=== PATIENT | female | born 1945 | race Caucasian/White ===

== ENCOUNTER 2017-10-11 19:13 | Emergency (ER) | payer OTHER, SELFPAY ==
[~2017-10-11] VITALS: Ht 170.2 cm; Wt 77.1 kg
[~2017-10-11 19:13] MED LIST: ATOR10 PO; Aspir 8181 MG PO; CARV25 PO; CLOP75 PO; GLIPIZIDE; LISI20 PO; METF500C PO; Tylenol With C1 EACH PO
[2017-10-11] MEDS ORDERED: Keflex500 MG PO (20:55)
[2017-10-11] MEDS ORDERED: Bactrim Ds Tab1 EACH PO (20:55)
== END 2017-10-11 21:04 | disposition home or self-care (01) ==
LOC: ER 19:13
DX: L03.116 Cellulitis of left lower limb (principal); E11.9 Type 2 diabetes mellitus without complications; I25.10 Atherosclerotic heart disease of native coronary artery without angina pectoris; I10 Essential (primary) hypertension; E78.00 Pure hypercholesterolemia, unspecified; Z88.8 Allergy status to other drugs, medicaments and biological substances; Z88.0 Allergy status to penicillin; Z79.82 Long term (current) use of aspirin; Z79.899 Other long term (current) drug therapy; Z79.84 Long term (current) use of oral hypoglycemic drugs; Z95.1 Presence of aortocoronary bypass graft; Z95.0 Presence of cardiac pacemaker
CPT/HCPCS: 73610; 99283

== ENCOUNTER 2017-11-16 03:47 | Emergency (ER) | payer OTHER, SELFPAY ==
[~2017-11-16] VITALS: Ht 170.2 cm; Wt 77.1 kg
[~2017-11-16 03:47] MED LIST changes: +Bactrim Ds Tab1 EACH PO; +Keflex500 MG PO
[2017-11-16] MEDS ORDERED: ATOR80 PO (04:13)
[2017-11-16] MEDS ORDERED: GLIP10ER PO (04:13)
[2017-11-16] MEDS ORDERED: LATANOPROST2.5 ML BOTHEYES (04:13)
[2017-11-16] MEDS ORDERED: Omeprazole20 M1 PO (04:15)
[2017-11-16] MEDS ORDERED: Ferus150 MG PO (04:16)
[2017-11-16] MEDS ORDERED: ISOMON20 PO (04:16)
[2017-11-16] MEDS ORDERED: Prinivil10 MG PO (04:16)
[2017-11-16] MEDS ORDERED: GABA100 PO (04:17)
[2017-11-16] MEDS ORDERED: TORSE20 PO (04:17)
[2017-11-16 04:59] LABS: BASOPHILS ABSOLUTE AUTO 0.03 K/mm3 (0.00-0.23); BASOPHILS PERCENT AUTO 1 % (0-2); EOSINOPHILS ABSOLUTE AUTO 0.13 K/mm3 (0.00-0.68); EOSINOPHILS PERCENT AUTO 2 % (0-6); Hematocrit 36.5 % (33.0-51.0); Hemoglobin 11.9 g/dL (11.5-16.0); IMMATURE GRAN ABSOLUTE AUTO 0.02 K/mm3 (0.00-0.10); IMMATURE GRAN PERCENT AUTO 0 % (0-1); LYMPHOCYTES ABSOLUTE AUTO 1.12 K/mm3 (0.84-5.20); LYMPHOCYTES PERCENT AUTO 18 % (21-46); MONOCYTES ABSOLUTE AUTO 0.37 K/mm3 (0.16-1.47); MONOCYTES PERCENT AUTO 6 % (4-13); Mean Corpuscular HGB 30.4 pg (26.0-34.0); Mean Corpuscular HGB Conc 32.6 g/dL (31.5-36.5); Mean Corpuscular Volume 93 fL (80-100); Mean Platelet Volume 9.9 fL (9.1-12.4); NEUTROPHILS ABSOLUTE AUTO 4.64 K/mm3 (1.96-9.15); NEUTROPHILS PERCENT AUTO 74 % (41-73); Platelet Count 169 K/mm3 (150-400); RDW Coefficient Variation 12.8 % (11.7-14.2); Red Blood Cell Count 3.91 M/mm3 (3.80-5.20); White Blood Cell Count 6.31 K/mm3 (4.00-11.30)
[2017-11-16 05:20] LABS: Alanine Aminotransfer (ALT/SGP 19 U/L (12-78); Albumin, Blood 3.7 g/dL (3.4-5.0); Alk Phos 126 U/L (50-136); Anion Gap 7 mmol/L (6-16); Aspartate Aminotrans (AST/SGOT 15 U/L (12-37); Bilirubin, Total 0.6 mg/dL (0.1-1.0); Blood Urea Nitrogen 22 mg/dL (8-24); CO2, Blood 25 mmol/L (21-32); Calcium, Blood 8.7 mg/dL (8.5-10.1); Chloride, Blood 108 mmol/L (98-108); Creatinine, Blood 1.22 mg/dL (0.40-1.00); Globulin, Blood 3.7 g/dL (2.2-4.0); Glomerular Filtration Rate 46 (60-); Glucose, Blood 94 mg/dL (70-99); Potassium, Blood 4.5 mmol/L (3.5-5.5); Sodium, Blood 140 mmol/L (136-145); Total Protein, Blood 7.4 g/dL (6.4-8.2); Troponin I <0.015 ng/mL (0.000-0.040)
[2017-11-16 05:26] LABS: Influenza A Positive (NEGATIVE); Influenza B Negative (NEGATIVE)
[2017-11-16] MEDS ORDERED: ONDA4ODT MM (06:41)
[2017-11-16] MEDS ORDERED: Tamiflu75 MG PO (06:41)
[2017-11-16] MEDS ORDERED: Tylenol325 MG PO (06:41)
== END 2017-11-16 07:00 | disposition home or self-care (01) ==
LOC: ER 03:47
PROVIDERS: Emergency Medicine
DX: J11.1 Influenza due to unidentified influenza virus with other respiratory manifestations (principal); E11.9 Type 2 diabetes mellitus without complications; I10 Essential (primary) hypertension; I25.2 Old myocardial infarction; Z88.0 Allergy status to penicillin; Z88.4 Allergy status to anesthetic agent; Z79.82 Long term (current) use of aspirin; Z79.84 Long term (current) use of oral hypoglycemic drugs; Z79.899 Other long term (current) drug therapy; Z98.42 Cataract extraction status, left eye; Z98.41 Cataract extraction status, right eye; Z95.0 Presence of cardiac pacemaker; Z95.1 Presence of aortocoronary bypass graft
CPT/HCPCS: 36415; 71046; 80053; 83880; 84484; 85025; 87804; 93005; 93010; 99284

== ENCOUNTER 2017-11-18 03:18 | Emergency (ER) | payer OTHER, SELFPAY ==
[~2017-11-18] VITALS: Ht 170.2 cm; Wt 77.1 kg
[~2017-11-18 03:18] MED LIST changes: +ATOR80 PO; +Ferus150 MG PO; +GABA100 PO; +GLIP10ER PO; +ISOMON20 PO; +LATANOPROST2.5 ML BOTHEYES; +ONDA4ODT MM; +Omeprazole20 M1 PO; +Prinivil10 MG PO; +TORSE20 PO; +Tamiflu75 MG PO; +Tylenol325 MG PO
[2017-11-18 03:57] LABS: BASOPHILS ABSOLUTE AUTO 0.02 K/mm3 (0.00-0.23); BASOPHILS PERCENT AUTO 0 % (0-2); EOSINOPHILS ABSOLUTE AUTO 0.03 K/mm3 (0.00-0.68); EOSINOPHILS PERCENT AUTO 0 % (0-6); Hematocrit 35.9 % (33.0-51.0); Hemoglobin 11.7 g/dL (11.5-16.0); IMMATURE GRAN ABSOLUTE AUTO 0.01 K/mm3 (0.00-0.10); IMMATURE GRAN PERCENT AUTO 0 % (0-1); LYMPHOCYTES ABSOLUTE AUTO 1.77 K/mm3 (0.84-5.20); LYMPHOCYTES PERCENT AUTO 26 % (21-46); MONOCYTES ABSOLUTE AUTO 0.36 K/mm3 (0.16-1.47); MONOCYTES PERCENT AUTO 5 % (4-13); Mean Corpuscular HGB 30.3 pg (26.0-34.0); Mean Corpuscular HGB Conc 32.6 g/dL (31.5-36.5); Mean Corpuscular Volume 93 fL (80-100); Mean Platelet Volume 9.7 fL (9.1-12.4); NEUTROPHILS ABSOLUTE AUTO 4.59 K/mm3 (1.96-9.15); NEUTROPHILS PERCENT AUTO 68 % (41-73); Platelet Count 149 K/mm3 (150-400); RDW Coefficient Variation 13.1 % (11.7-14.2); RDW Standard Deviation 44.2 fL (35.1-46.3); Red Blood Cell Count 3.86 M/mm3 (3.80-5.20); White Blood Cell Count 6.78 K/mm3 (4.00-11.30)
[2017-11-18 04:15] LABS: Albumin, Blood 3.4 g/dL (3.4-5.0); Albumin/Globulin Ratio 0.8 (0.8-1.8); Bilirubin, Total 0.6 mg/dL (0.1-1.0); Bun/Creatinine Ratio 15.7 (12.0-20.0); Calcium, Blood 8.3 mg/dL (8.5-10.1); Creatinine, Blood 1.34 mg/dL (0.40-1.00); Potassium, Blood 4.2 mmol/L (3.5-5.5); Total Protein, Blood 7.4 g/dL (6.4-8.2)
== END 2017-11-18 05:10 | disposition home or self-care (01) ==
LOC: ER 03:18
PROVIDERS: Emergency Medicine
DX: J11.1 Influenza due to unidentified influenza virus with other respiratory manifestations (principal); E11.9 Type 2 diabetes mellitus without complications; I10 Essential (primary) hypertension; I25.2 Old myocardial infarction; Z88.0 Allergy status to penicillin; Z88.8 Allergy status to other drugs, medicaments and biological substances; Z79.899 Other long term (current) drug therapy; Z79.84 Long term (current) use of oral hypoglycemic drugs; Z79.82 Long term (current) use of aspirin; Z95.0 Presence of cardiac pacemaker; Z95.1 Presence of aortocoronary bypass graft
CPT/HCPCS: 36415; 71046; 80053; 85025; 96360; 99283; J7030

== ENCOUNTER 2017-12-20 12:42 | Inpatient (IN) | payer OTHER, SELFPAY ==
[~2017-12-20] VITALS: Ht 172.7 cm; Wt 79.5 kg
[2017-12-20 13:25] LABS: BASOPHILS ABSOLUTE AUTO 0.03 K/mm3 (0.00-0.23); BASOPHILS PERCENT AUTO 0 % (0-2); EOSINOPHILS ABSOLUTE AUTO 0.34 K/mm3 (0.00-0.68); EOSINOPHILS PERCENT AUTO 5 % (0-6); Hematocrit 38.7 % (33.0-51.0); Hemoglobin 12.5 g/dL (11.5-16.0); IMMATURE GRAN ABSOLUTE AUTO 0.01 K/mm3 (0.00-0.10); IMMATURE GRAN PERCENT AUTO 0 % (0-1); LYMPHOCYTES ABSOLUTE AUTO 2.09 K/mm3 (0.84-5.20); LYMPHOCYTES PERCENT AUTO 31 % (21-46); MONOCYTES ABSOLUTE AUTO 0.33 K/mm3 (0.16-1.47); MONOCYTES PERCENT AUTO 5 % (4-13); Mean Corpuscular HGB 30.4 pg (26.0-34.0); Mean Corpuscular HGB Conc 32.3 g/dL (31.5-36.5); Mean Corpuscular Volume 94 fL (80-100); Mean Platelet Volume 9.6 fL (9.1-12.4); NEUTROPHILS ABSOLUTE AUTO 4.06 K/mm3 (1.96-9.15); NEUTROPHILS PERCENT AUTO 59 % (41-73); Platelet Count 209 K/mm3 (150-400); RDW Coefficient Variation 13.4 % (11.7-14.2); RDW Standard Deviation 46.5 fL (35.1-46.3); Red Blood Cell Count 4.11 M/mm3 (3.80-5.20); White Blood Cell Count 6.86 K/mm3 (4.00-11.30)
[2017-12-20 13:57] LABS: Alanine Aminotransfer (ALT/SGP 17 U/L (12-78); Albumin, Blood 4.1 g/dL (3.4-5.0); Alk Phos 138 U/L (50-136); Anion Gap 8 mmol/L (6-16); Aspartate Aminotrans (AST/SGOT 15 U/L (12-37); Bilirubin, Total 0.7 mg/dL (0.1-1.0); Blood Urea Nitrogen 23 mg/dL (8-24); Bun/Creatinine Ratio 18.7 (12.0-20.0); CO2, Blood 24 mmol/L (21-32); Calcium, Blood 9.2 mg/dL (8.5-10.1); Chloride, Blood 109 mmol/L (98-108); Creatinine, Blood 1.23 mg/dL (0.40-1.00); Globulin, Blood 4.2 g/dL (2.2-4.0); Glomerular Filtration Rate 46 (60-); Glucose, Blood 129 mg/dL (70-99); Potassium, Blood 4.6 mmol/L (3.5-5.5); Sodium, Blood 141 mmol/L (136-145); Total Protein, Blood 8.3 g/dL (6.4-8.2); Troponin I <0.015 ng/mL (0.000-0.040)
[2017-12-21 08:51] LABS: International Normalized Ratio 1.03; Prothrombin Time Results 10.7 Sec (9.7-11.5)
[2017-12-22 05:38] LABS: BASOPHILS ABSOLUTE AUTO 0.03 K/mm3 (0.00-0.23); BASOPHILS PERCENT AUTO 1 % (0-2); EOSINOPHILS ABSOLUTE AUTO 0.21 K/mm3 (0.00-0.68); EOSINOPHILS PERCENT AUTO 3 % (0-6); Hematocrit 30.5 % (33.0-51.0); IMMATURE GRAN ABSOLUTE AUTO 0.01 K/mm3 (0.00-0.10); IMMATURE GRAN PERCENT AUTO 0 % (0-1); LYMPHOCYTES ABSOLUTE AUTO 2.04 K/mm3 (0.84-5.20); LYMPHOCYTES PERCENT AUTO 32 % (21-46); MONOCYTES ABSOLUTE AUTO 0.37 K/mm3 (0.16-1.47); MONOCYTES PERCENT AUTO 6 % (4-13); Mean Corpuscular HGB 30.4 pg (26.0-34.0); Mean Corpuscular HGB Conc 32.8 g/dL (31.5-36.5); Mean Corpuscular Volume 93 fL (80-100); Mean Platelet Volume 10.1 fL (9.1-12.4); NEUTROPHILS PERCENT AUTO 58 % (41-73); Platelet Count 163 K/mm3 (150-400); RDW Coefficient Variation 13.6 % (11.7-14.2); RDW Standard Deviation 45.6 fL (35.1-46.3); Red Blood Cell Count 3.29 M/mm3 (3.80-5.20); White Blood Cell Count 6.36 K/mm3 (4.00-11.30)
[2017-12-22 06:08] LABS: Calcium, Blood 8.3 mg/dL (8.5-10.1); Creatinine, Blood 1.32 mg/dL (0.40-1.00); Potassium, Blood 3.9 mmol/L (3.5-5.5)
[2017-12-22 08:00] LABS: Magnesium, Blood 1.7 mg/dL (1.6-2.4)
[2017-12-22 14:23] LABS: CPK Creatine Kinase 73 U/L (26-193)
[2017-12-23 04:38] LABS: Albumin, Blood 2.8 g/dL (3.4-5.0); Anion Gap 9 mmol/L (6-16); Blood Urea Nitrogen 20 mg/dL (8-24); CO2, Blood 21 mmol/L (21-32); Calcium, Blood 8.1 mg/dL (8.5-10.1); Chloride, Blood 112 mmol/L (98-108); Creatinine, Blood 1.11 mg/dL (0.40-1.00); Glomerular Filtration Rate 51 (60-); Glucose, Blood 175 mg/dL (70-99); Magnesium, Blood 1.9 mg/dL (1.6-2.4); Phosphorus, Blood 2.5 mg/dL (2.5-4.9); Sodium, Blood 142 mmol/L (136-145)
[2017-12-23] MEDS ORDERED: PANT40 PO (09:47)
[2017-12-23] MEDS ORDERED: AMLO5 PO (09:48)
[2017-12-23] MEDS ORDERED: CARV6.25 PO (09:48)
[2017-12-23] MEDS ORDERED: Isosorbide Mono30 MG PO (09:49)
== END 2017-12-23 10:24 | disposition home or self-care (01) | DRG 287 ==
LOC: ER 12:42 → ICUW 16:43 → PCU 12-21 17:30
PROVIDERS: Emergency Medicine; Family Medicine; Internal Medicine Cardiovascular Disease; Internal Medicine Interventional Cardiology
PROC: 4A023N7 Measurement of Cardiac Sampling and Pressure, Left Heart, Percutaneous Approach (ICD-10-PCS; principal; 2017-12-20)
PROC: B211YZZ Fluoroscopy of Multiple Coronary Arteries using Other Contrast (ICD-10-PCS; 2017-12-20)
PROC: B212YZZ Fluoroscopy of Single Coronary Artery Bypass Graft using Other Contrast (ICD-10-PCS; 2017-12-20)
PROC: B218YZZ Fluoroscopy of Left Internal Mammary Bypass Graft using Other Contrast (ICD-10-PCS; 2017-12-20)
DX: I25.119 Atherosclerotic heart disease of native coronary artery with unspecified angina pectoris (principal); E11.22 Type 2 diabetes mellitus with diabetic chronic kidney disease; I25.82 Chronic total occlusion of coronary artery; I24.9 Acute ischemic heart disease, unspecified; I13.0 Hypertensive heart and chronic kidney disease with heart failure and stage 1 through stage 4 chronic kidney disease, or unspecified chronic kidney disease; I50.30 Unspecified diastolic (congestive) heart failure; E11.9 Type 2 diabetes mellitus without complications; E78.5 Hyperlipidemia, unspecified; Z95.0 Presence of cardiac pacemaker; Z66 Do not resuscitate; M79.2 Neuralgia and neuritis, unspecified; N18.3 Chronic kidney disease, stage 3 (moderate)
CPT/HCPCS: 36415; 71046; 80048; 80053; 80069; 82550; 82947; 83735; 83880; 84484; 85025; 85610; 85730; 86850; 86900; 86901; 92920; 93005; 93010; 93308; 93459; 99152; 99285; C1725; C1760; C1769; C1894; J1644; J2250; J2270; J2405; J3010; J3475; J7030; Q9967

== ENCOUNTER 2018-03-27 11:18 | Emergency (ER) | payer OTHER, SELFPAY ==
[~2018-03-27] VITALS: Ht 170.2 cm; Wt 77.1 kg
[~2018-03-27 11:18] MED LIST changes: +AMLO5 PO; +CARV6.25 PO; +Isosorbide Mono30 MG PO; +PANT40 PO
== END 2018-03-27 12:24 | disposition home or self-care (01) ==
LOC: ER 11:18
DX: M25.511 Pain in right shoulder (principal); Z88.0 Allergy status to penicillin; Z88.8 Allergy status to other drugs, medicaments and biological substances; Z79.899 Other long term (current) drug therapy; Z79.84 Long term (current) use of oral hypoglycemic drugs; Z79.82 Long term (current) use of aspirin; I10 Essential (primary) hypertension; E11.9 Type 2 diabetes mellitus without complications; E78.5 Hyperlipidemia, unspecified; Z87.891 Personal history of nicotine dependence
CPT/HCPCS: 99281

== ENCOUNTER 2018-11-15 17:26 | Inpatient (IN) | payer OTHER ==
[~2018-11-15] VITALS: Ht 170.2 cm; Wt 75.5 kg
[~2018-11-15 17:26] MED LIST changes: -Prinivil10 MG PO; +ZESTRIL40 MG PO
[2018-11-15 17:59] LABS: BASOPHILS ABSOLUTE AUTO 0.03 K/mm3 (0.00-0.23); BASOPHILS PERCENT AUTO 1 % (0-2); EOSINOPHILS ABSOLUTE AUTO 0.19 K/mm3 (0.00-0.68); EOSINOPHILS PERCENT AUTO 4 % (0-6); Hematocrit 33.4 % (33.0-51.0); Hemoglobin 10.7 g/dL (11.5-16.0); IMMATURE GRAN ABSOLUTE AUTO 0.01 K/mm3 (0.00-0.10); IMMATURE GRAN PERCENT AUTO 0 % (0-1); LYMPHOCYTES ABSOLUTE AUTO 2.28 K/mm3 (0.84-5.20); LYMPHOCYTES PERCENT AUTO 44 % (21-46); MONOCYTES ABSOLUTE AUTO 0.28 K/mm3 (0.16-1.47); MONOCYTES PERCENT AUTO 5 % (4-13); Mean Corpuscular HGB 30.3 pg (26.0-34.0); Mean Corpuscular Volume 95 fL (80-100); Mean Platelet Volume 9.7 fL (9.1-12.4); NEUTROPHILS ABSOLUTE AUTO 2.38 K/mm3 (1.96-9.15); NEUTROPHILS PERCENT AUTO 46 % (41-73); Platelet Count 180 K/mm3 (150-400); RDW Coefficient Variation 13.3 % (11.7-14.2); RDW Standard Deviation 46.4 fL (35.1-46.3); Red Blood Cell Count 3.53 M/mm3 (3.80-5.20); White Blood Cell Count 5.17 K/mm3 (4.00-11.30)
[2018-11-15 18:28] LABS: Alanine Aminotransfer (ALT/SGP 17 U/L (12-78); Albumin, Blood 3.6 g/dL (3.4-5.0); Albumin/Globulin Ratio 1.1 (0.8-1.8); Alk Phos 124 U/L (50-136); Anion Gap 8 mmol/L (6-16); Aspartate Aminotrans (AST/SGOT 9 U/L (12-37); Bilirubin, Total 0.3 mg/dL (0.1-1.0); Blood Urea Nitrogen 18 mg/dL (8-24); Bun/Creatinine Ratio 11.5 (12.0-20.0); CO2, Blood 23 mmol/L (21-32); Calcium, Blood 8.3 mg/dL (8.5-10.1); Chloride, Blood 113 mmol/L (98-108); Creatinine, Blood 1.56 mg/dL (0.40-1.00); Globulin, Blood 3.2 g/dL (2.2-4.0); Glomerular Filtration Rate 35 (60-); Glucose, Blood 102 mg/dL (70-99); Potassium, Blood 3.7 mmol/L (3.5-5.5); Sodium, Blood 144 mmol/L (136-145); Total Protein, Blood 6.8 g/dL (6.4-8.2); Troponin I <0.015 ng/mL (0.000-0.040)
[2018-11-16 01:43] LABS: Hematocrit 31.2 % (33.0-51.0); Hemoglobin 10.1 g/dL (11.5-16.0); Mean Corpuscular HGB 30.3 pg (26.0-34.0); Mean Corpuscular HGB Conc 32.4 g/dL (31.5-36.5); Mean Corpuscular Volume 94 fL (80-100); Mean Platelet Volume 9.4 fL (9.1-12.4); Platelet Count 179 K/mm3 (150-400); RDW Coefficient Variation 13.4 % (11.7-14.2); RDW Standard Deviation 46.2 fL (35.1-46.3); Red Blood Cell Count 3.33 M/mm3 (3.80-5.20); White Blood Cell Count 6.62 K/mm3 (4.00-11.30)
[2018-11-16 02:05] LABS: Anion Gap 6 mmol/L (6-16); Blood Urea Nitrogen 22 mg/dL (8-24); CO2, Blood 24 mmol/L (21-32); Calcium, Blood 8.5 mg/dL (8.5-10.1); Chloride, Blood 115 mmol/L (98-108); Cholesterol 128 mg/dL (50-200); Creatinine, Blood 1.57 mg/dL (0.40-1.00); Glomerular Filtration Rate 34 (60-); Glucose, Blood 142 mg/dL (70-99); HDL Cholesterol 42 mg/dL (>39); LDL/HDL RATIO 1.3; Low Density Lipoprotein Chol 54 mg/dL (0-110); Magnesium, Blood 1.6 mg/dL (1.6-2.4); Phosphorus, Blood 2.7 mg/dL (2.5-4.9); Potassium, Blood 3.8 mmol/L (3.5-5.5); Sodium, Blood 145 mmol/L (136-145); Triglycerides 158 mg/dL (30-160); Very Low Density Lipoprot Chol 31 mg/dL (6-32)
[2018-11-16 02:09] LABS: CPK Creatine Kinase 48 U/L (26-193); Creatine Kinase MB 1.3 ng/mL (0.0-3.6); Creatine Kinase MB Index 2.7 (0.0-4.0); Troponin I <0.015 ng/mL (0.000-0.040)
--- NOTE | 2018-11-16 06:20 | NUR ---
SHIFT SUMMARY PT SLEEPING IN ROOM COMFORTABLY. PT TO UNIT FROM ED ABLE TO STAND AND WALK TO HOSP BED W/O ASSIST. PT BP WAS VERY ELEVATED UPON ARRIVAL. MEDICATED PER EMAR. PT DENIES CP ON ARRIVAL. DENIED ANY SOB. BP SLOWLY DECREASED W/ MEDICATIONS. PT REPORTS FEELING BETTER. BP NOW CLOSER TO BASELINE. RESP EVEN UNLABORED ON RA. SKIN PWD. DENIES CP THIS AM. CALL LIGHT IN REACH.
[2018-11-16 09:58] LABS: CPK Creatine Kinase 48 U/L (26-193); Creatine Kinase MB 1.2 ng/mL (0.0-3.6); Creatine Kinase MB Index 2.5 (0.0-4.0); Troponin I <0.015 ng/mL (0.000-0.040)
--- NOTE | 2018-11-16 12:03 | NUR ---
ECHOCARDIGRAM COMPLETED
--- NOTE | 2018-11-16 17:21 | NUR ---
END OF SHIFT; PT HAD NO ACUTE CHANGES IN CONDITION NOTED. BP IS MORE CONTROLLED THAN ON ADMIT. SHE DENIES ANY CP OR PRESSURE. SHE IS INDEPENDENT IN ROOM. WILL CONTINUE TO MONITOR THIS PATIENT CLOSELY UNTIL REPORT AND HAND OFF TO NOC SHIFT RN.
--- NOTE | 2018-11-16 23:21 | NUR ---
OPENING NOTE RECEIVED BEDSIDE REPORT FROM TERESA LOYOLA AND ASSUMED PT CARE. PT IS SITTING UP IN BED, WATCHING TELEVISION, DENIES NEEDS AT THIS TIME. WILL PERFORM ASSESSMENT AND CONTINUE PLAN OF CARE. CALL LIGHT AND BELONGINGS IN REACH, PT. IS INDEPENDENT.
--- NOTE | 2018-11-17 | NUR ---
ASSUMED CARE REPORT FROM RADHA MOORE. CURRENTLY MONITORING PT BP FOR HTN. PT MEDICATED PER EMAR FOR HTN. SBP STILL HIGH AT 193. PT WILL BE MEDICATED PRN FROM EMAR. WILL CONT TO MONITOR.
--- NOTE | 2018-11-17 06:31 | NUR ---
SHIFT SUMMARY PT IN ROOM SLEEPING COMFORTABLY. NO ACUTE CHANGES IN STATUS. PT REMAINS FREE OF CP. DENIES ANY SOB. PT DID HAVE ONE EPISODE OF HTN AT APROX 2300. PT WAS MEDICATED PER EMAR. BP SLIGHTLY REDUCED. PT WAS MEDICATED PER EMAR AGAIN WITH PRN MEDS. BP BACK DOWN WITHIN SPECIFIED PARAMETERS. SEE VITALS. SKIN PWD. CALL LIGHT IN REACH.
[2018-11-17] MEDS ORDERED: Milk Of Ma400 MG/5 M PO (13:07)
[2018-11-17] MEDS ORDERED: AMLO5 PO (15:34)
--- NOTE | 2018-11-17 18:39 | NUR ---
DISCHARGE NOTE PT STABLE FOR DISCHARGE. IV REMOVED. DISCHARGE INSTRUCTIONS AND DISCHARGE MEDICATIONS REVIEWED WITH PT AND . PT AND VERBALIZE UNDERSTANDING AND DENY QUESTIONS. PT DISCHARGED VIA WHEELCHAIR TO WAITING CAR WITH BELONGINGS.
== END 2018-11-17 18:43 | disposition home or self-care (01) | DRG 305 ==
LOC: ER 17:26 → PCU 19:38
PROVIDERS: Emergency Medicine; ADMIT Internal Medicine
DX: I16.0 Hypertensive urgency (principal); I25.10 Atherosclerotic heart disease of native coronary artery without angina pectoris; I12.9 Hypertensive chronic kidney disease with stage 1 through stage 4 chronic kidney disease, or unspecified chronic kidney disease; N18.3 Chronic kidney disease, stage 3 (moderate); E11.22 Type 2 diabetes mellitus with diabetic chronic kidney disease; E11.40 Type 2 diabetes mellitus with diabetic neuropathy, unspecified; E78.5 Hyperlipidemia, unspecified; Z66 Do not resuscitate; Z88.0 Allergy status to penicillin; Z88.8 Allergy status to other drugs, medicaments and biological substances; Z95.1 Presence of aortocoronary bypass graft; Z95.5 Presence of coronary angioplasty implant and graft; Z79.84 Long term (current) use of oral hypoglycemic drugs; Z79.02 Long term (current) use of antithrombotics/antiplatelets; Z79.82 Long term (current) use of aspirin; Z79.899 Other long term (current) drug therapy; I25.2 Old myocardial infarction; Z87.891 Personal history of nicotine dependence
CPT/HCPCS: 36415; 71046; 80048; 80053; 80061; 82550; 82553; 82947; 83036; 83735; 84100; 84443; 84484; 85025; 85027; 93005; 93010; 93306; 99285-25; J0360; J1650

== ENCOUNTER 2019-06-13 14:15 | Observation (INO) | payer OTHER ==
[~2019-06-13] VITALS: Ht 170.2 cm; Wt 78.9 kg
[~2019-06-13 14:15] MED LIST changes: -CARV6.25 PO; +Coreg12.5 MG PO; +Milk Of Ma400 MG/5 M PO; -ZESTRIL40 MG PO
[2019-06-13 14:57] LABS: BASOPHILS ABSOLUTE AUTO 0.02 K/mm3 (0.00-0.23); BASOPHILS PERCENT AUTO 0 % (0-2); EOSINOPHILS ABSOLUTE AUTO 0.18 K/mm3 (0.00-0.68); EOSINOPHILS PERCENT AUTO 4 % (0-6); Hematocrit 32.9 % (33.0-51.0); Hemoglobin 10.5 g/dL (11.5-16.0); IMMATURE GRAN ABSOLUTE AUTO 0.01 K/mm3 (0.00-0.10); IMMATURE GRAN PERCENT AUTO 0 % (0-1); LYMPHOCYTES ABSOLUTE AUTO 2.04 K/mm3 (0.84-5.20); LYMPHOCYTES PERCENT AUTO 41 % (21-46); MONOCYTES ABSOLUTE AUTO 0.28 K/mm3 (0.16-1.47); MONOCYTES PERCENT AUTO 6 % (4-13); Mean Corpuscular HGB 31.8 pg (26.0-34.0); Mean Corpuscular HGB Conc 31.9 g/dL (31.5-36.5); Mean Corpuscular Volume 100 fL (80-100); Mean Platelet Volume 9.9 fL (9.1-12.4); NEUTROPHILS ABSOLUTE AUTO 2.49 K/mm3 (1.96-9.15); NEUTROPHILS PERCENT AUTO 50 % (41-73); Platelet Count 195 K/mm3 (150-400); RDW Coefficient Variation 13.4 % (11.7-14.2); RDW Standard Deviation 48.2 fL (35.1-46.3); White Blood Cell Count 5.02 K/mm3 (4.00-11.30)
[2019-06-13 15:23] LABS: Alanine Aminotransfer (ALT/SGP 24 U/L (12-78); Albumin, Blood 3.7 g/dL (3.4-5.0); Albumin/Globulin Ratio 1.1 (0.8-1.8); Alk Phos 116 U/L (50-136); Anion Gap 7 mmol/L (6-16); Aspartate Aminotrans (AST/SGOT 16 U/L (12-37); Bilirubin, Total 0.6 mg/dL (0.1-1.0); Blood Urea Nitrogen 33 mg/dL (8-24); Bun/Creatinine Ratio 22.4 (12.0-20.0); CO2, Blood 21 mmol/L (21-32); Calcium, Blood 8.8 mg/dL (8.5-10.1); Chloride, Blood 115 mmol/L (98-108); Creatinine, Blood 1.47 mg/dL (0.40-1.00); Globulin, Blood 3.3 g/dL (2.2-4.0); Glomerular Filtration Rate 37 (60-); Glucose, Blood 113 mg/dL (70-99); Potassium, Blood 4.4 mmol/L (3.5-5.5); Sodium, Blood 143 mmol/L (136-145); Troponin I <0.015 ng/mL (0.000-0.040)
[2019-06-13] MEDS ORDERED: ALLO100 PO (15:28)
[2019-06-13] MEDS ORDERED: METF500C PO (15:31)
[2019-06-13] MEDS ORDERED: PANT40 PO (15:31)
--- NOTE | 2019-06-13 18:43 | NUR ---
PT ADMITTED PT ADMITTED AT 1808. PT IN STABLE CONDITION WITH VSS. PT ORIENTED TO ROOM. CALL LIGHT IN REACH. NO CHANGES IN ASSESSMENT AT THIS TIME.
[2019-06-13 21:24] LABS: CPK Creatine Kinase 74 U/L (26-193); Creatine Kinase MB 1.9 ng/mL (0.0-3.6); Creatine Kinase MB Index 2.6 (0.0-4.0); Troponin I <0.015 ng/mL (0.000-0.040)
--- NOTE | 2019-06-14 01:43 | NUR ---
PATIENT RESTING IN BED. DENIES CHEST PAIN, SOB, AND N/V. CALL LIGHT IN REACH.
--- NOTE | 2019-06-14 03:19 | NUR ---
SHIFT SUMMARY PATIENT HAD NO ACUTE CHANGES OBSERVED. AXOX 4 AND BR PRIVILEDGES WITH SBA. PIV REMAINS INTACT. PRIMARY CLINICIAN REPORTS AV PACED AT 60. PCU DRAGLINE MECHANIC REPORTED FEW SECOND PAUSE WITH PACER BEFORE RETURNING BACK TO PACED AT 60. PATIENT WAS AXO X4 WITH NO CHANGE AND ABLE TO HAVE CONVERSATION. CBG 143 CNI. DENIES CHEST PAIN, SOB AND N/V. BP ELEVATED AT SHIFT CHANGE JUST AFTER ADMIT 174/85. AFTER EVENING BP MEDS: 130/68. NPO> MIDNIGHT FOR STRESS TEST. COOPERATIVE WITH CARE. CALL LIGHT IN REACH. BED IN LOWEST POSITION. WILL CONTINUE TO MONITOR UNTIL DAY SHIFT NURSE ASSUMES CARE.
[2019-06-14 05:37] LABS: CPK Creatine Kinase 58 U/L (26-193); Troponin I <0.015 ng/mL (0.000-0.040)
[2019-06-14 05:38] LABS: Anion Gap 6 mmol/L (6-16); Blood Urea Nitrogen 29 mg/dL (8-24); Bun/Creatinine Ratio 21.6 (12.0-20.0); CO2, Blood 24 mmol/L (21-32); Chloride, Blood 113 mmol/L (98-108); Creatine Kinase MB 1.6 ng/mL (0.0-3.6); Creatine Kinase MB Index 2.8 (0.0-4.0); Creatinine, Blood 1.34 mg/dL (0.40-1.00); Glomerular Filtration Rate 41 (60-); Glucose, Blood 67 mg/dL (70-99); Potassium, Blood 3.9 mmol/L (3.5-5.5); Sodium, Blood 143 mmol/L (136-145)
[2019-06-14 05:53] LABS: BASOPHILS ABSOLUTE AUTO 0.02 K/mm3 (0.00-0.23); BASOPHILS PERCENT AUTO 0 % (0-2); EOSINOPHILS ABSOLUTE AUTO 0.22 K/mm3 (0.00-0.68); EOSINOPHILS PERCENT AUTO 4 % (0-6); Hematocrit 32.8 % (33.0-51.0); Hemoglobin 10.6 g/dL (11.5-16.0); IMMATURE GRAN ABSOLUTE AUTO 0.01 K/mm3 (0.00-0.10); IMMATURE GRAN PERCENT AUTO 0 % (0-1); LYMPHOCYTES ABSOLUTE AUTO 2.55 K/mm3 (0.84-5.20); LYMPHOCYTES PERCENT AUTO 50 % (21-46); MONOCYTES PERCENT AUTO 6 % (4-13); Mean Corpuscular HGB 31.8 pg (26.0-34.0); Mean Corpuscular HGB Conc 32.3 g/dL (31.5-36.5); Mean Corpuscular Volume 99 fL (80-100); Mean Platelet Volume 9.8 fL (9.1-12.4); NEUTROPHILS ABSOLUTE AUTO 1.99 K/mm3 (1.96-9.15); NEUTROPHILS PERCENT AUTO 39 % (41-73); Platelet Count 188 K/mm3 (150-400); RDW Coefficient Variation 13.4 % (11.7-14.2); RDW Standard Deviation 47.6 fL (35.1-46.3); Red Blood Cell Count 3.33 M/mm3 (3.80-5.20); White Blood Cell Count 5.09 K/mm3 (4.00-11.30)
--- NOTE | 2019-06-14 07:45 | NUR ---
LOW BLOOD SUGAR DR. GOLDSTEIN CALLED & INFORMED OF PT BLOOD SUGAR OF 61. PT NPO AT THIS TIME FOR STRESS TEST. TIME OF TEST UNKNOWN AT THIS TIME. ORDERED D50. WILL RECHECK BLOOD SUGAR IN 1 HOUR. WILL CONTINUE TO MONITOR.
--- NOTE | 2019-06-14 16:27 | NUR ---
SHIFT SUMMARY PT DENIES CHEST PAIN THIS SHIFT. PT DENIES CHEST PRESSURE. PT COMPLETED 1ST HALF OF STRESS TEST THIS SHIFT. SECOND TO BE COMPLETED TOMORROW. PT IS TO BE NPO AFTER BREAKFAST ON 06/15/19 & HAVE NO CAFFINE AFTER MIDNIGHT. NO OTHER CHANGES IN ASSESSMENT AT THIS TIME. VSS. WILL CONTINUE TO MONITOR UNTIL TURNOVER IS COMPLETE.
--- NOTE | 2019-06-14 21:38 | NUR ---
PATIENT RESTING IN BED. CBG 95. DENIES CHEST PAIN, SOB, AND N/V. CALL LIGHT IN REACH.
--- NOTE | 2019-06-15 03:45 | NUR ---
SHIFT SUMMARY PATIENT HAD NO ACUTE CHANGES OBSERVED THIS SHIFT. DENIES CHEST PAIN, SOB, AND N/V. AXOX 4 AND SBA TO BR. NO CAFFEINE AFTER MIDNIGHT AND NPO AFTER AM BREAKFAST. PIV REMAINS INTACT. DOOR CLAMP OPERATOR REPORTS 100% PACED W/BBB AT 60. COOPERATIVE WITH CARE. STRESS TEST TWO OF TWO TODAY. CALL LIGHT IN REACH. BED IN LOWEST POSITION. WILL CONTINUE TO MONITOR UNTIL DAY SHIFT NURSE ASSUMES CARE.
[2019-06-15 05:05] LABS: Bun/Creatinine Ratio 17.2 (12.0-20.0); Calcium, Blood 9.1 mg/dL (8.5-10.1); Creatinine, Blood 1.45 mg/dL (0.40-1.00); Potassium, Blood 4.2 mmol/L (3.5-5.5)
--- NOTE | 2019-06-15 15:17 | NUR ---
STRESS TEST COMPLETED, RESULTS READ TO DR. GOLDSTEIN, DR. GOLDSTEIN ORDERED CARDIOLOGY CONSULT, CONSULT CALLED TO OFFICE. PT HAS DENIES CP ALL SHIFT.
--- NOTE | 2019-06-15 19:09 | NUR ---
SHIFT SUMMARY. A&OX4 INDEPENDENT IN ROOM, NO SAFETY CONCERNS. PT HAS DENIED PAIN ENTIRE SHIFT. PT DENIES SOB, N/V, GOOD MEAL INTAKE. DR. CONNELL CONSULTED THIS EVENING AND MADE CHANGES TO PT'S CARDIAC MEDICATIONS. NO NEW CHANGES OR CONCERNS.
--- NOTE | 2019-06-16 00:22 | NUR ---
Transferred care to TERESA Walker when PT transferred to medical room 310 due to not requiring special care as she is appropriate, alert and oriented and cooperative. She is independent in room and tolerating diet and activity. Continues on tele monitor 100% AV paced. Cardiology consult complete and rx changed made by DR Sharma.
[2019-06-16 04:24] LABS: Bun/Creatinine Ratio 18.6 (12.0-20.0); Calcium, Blood 9.2 mg/dL (8.5-10.1); Creatinine, Blood 1.45 mg/dL (0.40-1.00)
--- NOTE | 2019-06-16 05:33 | NUR ---
SHIFT SUMMARY: ALISSA WAS TRANSFERRED TO MY CARE AROUND 0020. SHE IS AOX3 COOPERATIVE AND INDEPENDENT IN THE ROOM. SINCE HER TRANSFER TO THIS ROOM SHE HAS BEEN SLEEPING WELL WITH NO ACUTE CHANGES OR CONCERNS. NO PRN MEDS NEEDED. DENIED ANY NEEDS. CALL LIGHT REMAINED WITH IN REACH AND USED APPROPRIATLY. WILL REPORT TO DAY SHIFT RN.
--- NOTE | 2019-06-16 11:45 | NUR ---
SHE ATE BREAKFAST, TOOK AM MEDS AND FELT WELL, HOPEFUL TO GO HOME TODAY. SHE THEN SHOWERED ON A SHOWER CHAIR. WHEN SHE STOOD TO DRY OFF AND GO TO THE BATHROOM, SHE BACAME VERY FAINT, HOT AND CLAMMY. SHE PULLED THE CALL LIGHT CORD. DATA WAREHOUSE SPECIALIST ARRIVED, KEPT HER SITTING AND CALLED FOR HELP. VS TAKEN. TELE RESUMED. BP REMAINED LOW WITH SYSTOLIC NUMBERS BEING IN THE 70'S AND LOW 59. SHE HELPED STAND TO PUT HER INTO A W/C. WE WHEELED HER TO THE BED AND SHE HELPED TRANSFER TO THE BED. WE LAYED HER DOWN, PUT HER IN TRENDELENBERG AND RE-CHECKED HER VS. SBP 120. THEN LAYED HER SUPINE. NEXT SBP'S WERE 114, 105,101,97,AND 92. HAD BEEN NOTIFIED. HE ALSO CAME TO SEE HER. IV BOLUS STARTED. BP NOW ON LA. IT READS HIGHER. SBP NOW DURING BOLUS ON LA IS 101. SHE IS RESTING COMFORTABLY.
[2019-06-16] MEDS ORDERED: Isosorbide Mono60 MG PO (11:52)
[2019-06-16] MEDS ORDERED: Coreg25 MG PO (11:52)
--- NOTE | 2019-06-16 16:56 | NUR ---
SHE WAS NOT ORTHOSTATIC THIS AFTERNOON. I THEN TOOK HER FOR A WALK WITH [place] ON AND SHE USED THE WALKER. SHE AMBULATED WELL AND FELT WELL ENOUGH TO GO HOME. SHE WAS 100% PACED. DISCHARGED TO HOME WITH INSTRUCTIONS AND BELONGINGS AT 1616. SHE UNDERSTANDS TO TAKE HER MEDICATIONS ONLY ON HER DC INSTRUCTIONS TODAY.
== END 2019-06-16 16:16 | disposition home or self-care (01) ==
LOC: ER 14:15 → MEDS 14:16 → ENPENDDIS 06-15 11:16 → MEDS 06-16 00:05
PROVIDERS: Internal Medicine; Physician Assistant; ADMIT Internal Medicine
DX: R07.89 Other chest pain (principal); I25.10 Atherosclerotic heart disease of native coronary artery without angina pectoris; I12.9 Hypertensive chronic kidney disease with stage 1 through stage 4 chronic kidney disease, or unspecified chronic kidney disease; E11.22 Type 2 diabetes mellitus with diabetic chronic kidney disease; N18.3 Chronic kidney disease, stage 3 (moderate); E11.40 Type 2 diabetes mellitus with diabetic neuropathy, unspecified; I25.2 Old myocardial infarction; E78.5 Hyperlipidemia, unspecified; Z66 Do not resuscitate; Z95.1 Presence of aortocoronary bypass graft; Z95.5 Presence of coronary angioplasty implant and graft; Z95.0 Presence of cardiac pacemaker; Z87.891 Personal history of nicotine dependence; Z79.899 Other long term (current) drug therapy; Z79.01 Long term (current) use of anticoagulants; Z79.82 Long term (current) use of aspirin; Z79.84 Long term (current) use of oral hypoglycemic drugs; Z88.0 Allergy status to penicillin; Z88.8 Allergy status to other drugs, medicaments and biological substances
CPT/HCPCS: 36415; 71046; 78452; 80048; 80053; 82550; 82553; 82947; 84484; 85025; 93005; 93010; 93017; 96361; 96372; 96374; 99285-25; A9500; G0378; J0706; J1644; J1815; J2270; J2785; J7040; J7799

== ENCOUNTER 2019-09-11 06:17 | Emergency (ER) | payer OTHER ==
[~2019-09-11] VITALS: Ht 170.2 cm; Wt 77.1 kg
[~2019-09-11 06:17] MED LIST changes: +ALLO100 PO; +Coreg25 MG PO; +Isosorbide Mono60 MG PO
[2019-09-11 07:11] LABS: BASOPHILS ABSOLUTE AUTO 0.04 K/mm3 (0.00-0.23); BASOPHILS PERCENT AUTO 1 % (0-2); EOSINOPHILS PERCENT AUTO 0 % (0-6); Hemoglobin 10.9 g/dL (11.5-16.0); IMMATURE GRAN ABSOLUTE AUTO 0.01 K/mm3 (0.00-0.10); IMMATURE GRAN PERCENT AUTO 0 % (0-1); LYMPHOCYTES PERCENT AUTO 30 % (21-46); MONOCYTES ABSOLUTE AUTO 0.38 K/mm3 (0.16-1.47); MONOCYTES PERCENT AUTO 6 % (4-13); Mean Corpuscular HGB 31.2 pg (26.0-34.0); Mean Corpuscular HGB Conc 32.1 g/dL (31.5-36.5); Mean Corpuscular Volume 97 fL (80-100); Mean Platelet Volume 9.8 fL (9.1-12.4); NEUTROPHILS ABSOLUTE AUTO 4.24 K/mm3 (1.96-9.15); NEUTROPHILS PERCENT AUTO 64 % (41-73); Platelet Count 175 K/mm3 (150-400); RDW Coefficient Variation 13.9 % (11.7-14.2); RDW Standard Deviation 49.5 fL (35.1-46.3); Red Blood Cell Count 3.49 M/mm3 (3.80-5.20); White Blood Cell Count 6.67 K/mm3 (4.00-11.30)
[2019-09-11 07:26] LABS: Bun/Creatinine Ratio 18.9 (12.0-20.0); Calcium, Blood 8.8 mg/dL (8.5-10.1); Creatinine, Blood 1.48 mg/dL (0.40-1.00); Potassium, Blood 4.1 mmol/L (3.5-5.5)
[2019-09-11] MEDS ORDERED: Roxicodone5 MG PO (07:55)
[2019-09-11] MEDS ORDERED: Prednisone20 MG PO (07:55)
[2019-09-11] MEDS ORDERED: COLCHICINE0.6 MG PO (07:55)
== END 2019-09-11 08:21 | disposition home or self-care (01) ==
LOC: ER 06:17
PROVIDERS: Emergency Medicine
DX: M10.9 Gout, unspecified (principal); I25.2 Old myocardial infarction; E11.9 Type 2 diabetes mellitus without complications; I10 Essential (primary) hypertension; Z88.0 Allergy status to penicillin; Z79.899 Other long term (current) drug therapy
CPT/HCPCS: 36415; 80048; 85025; 99283; J7512

== ENCOUNTER 2020-03-02 17:57 | Emergency (ER) | payer MEDICARE, OTHER ==
[~2020-03-02] VITALS: Ht 172.7 cm; Wt 77.1 kg
[~2020-03-02 17:57] MED LIST changes: +COLCHICINE0.6 MG PO; +Prednisone20 MG PO; +Roxicodone5 MG PO
== END 2020-03-02 20:13 | disposition home or self-care (01) ==
LOC: ER 17:57
DX: S80.12XA Contusion of left lower leg, initial encounter (principal); I25.2 Old myocardial infarction; I12.9 Hypertensive chronic kidney disease with stage 1 through stage 4 chronic kidney disease, or unspecified chronic kidney disease; E11.22 Type 2 diabetes mellitus with diabetic chronic kidney disease; N18.3 Chronic kidney disease, stage 3 (moderate); I25.10 Atherosclerotic heart disease of native coronary artery without angina pectoris; Z88.0 Allergy status to penicillin; Z88.8 Allergy status to other drugs, medicaments and biological substances; Z79.899 Other long term (current) drug therapy; Z79.84 Long term (current) use of oral hypoglycemic drugs; Z79.82 Long term (current) use of aspirin; Z79.02 Long term (current) use of antithrombotics/antiplatelets; Z87.891 Personal history of nicotine dependence; W11.XXXA Fall on and from ladder, initial encounter
CPT/HCPCS: 73610; 99283-25

== ENCOUNTER 2020-03-23 07:04 | Day surgery (SDC) | payer MEDICARE, OTHER ==
[~2020-03-23] VITALS: Ht 172.7 cm; Wt 78.6 kg
--- NOTE | 2020-03-23 07:26 | NUR ---
PT ADMITTED TO [facility]. AGREES WITH PLANNED PROCEDURE. STATES SHE TOLERATED BOWEL PREP AND LAST BM CLEAR.
--- NOTE | 2020-03-23 07:27 | NUR ---
LUNG SOUNDS CLEAR.
--- NOTE | 2020-03-23 08:00 | NUR ---
03/23/20 0800 Clinton Flynn PATIENT DETERMINED TO BE ASA APPROPRIATE FOR PROPOFOL SEDATION PRIOR TO START OF PROCEDURE BY DR. Sayra Schrader Placed3-LEAD EKG REVIEWED WITH PHYSICIAN PRIOR TO START OF PROCEDURE.Patient to ENDO 1History, Chart, Medications and Allergies reviewed before start of procedure.O2 VIA N/C INTACT THROUGHOUT SEDATION/PROCEDURE.
--- NOTE | 2020-03-23 09:47 | NUR ---
Discharge instructions reviewed with patient. Patient verbalizes understanding. Copy given to patient to take home. Discharged via wheelchair to private car for ride home.
== END 2020-03-23 23:00 | disposition home or self-care (01) ==
LOC: ORSCMMR 07:04 → ORD 08:00 → ORSCMMR 08:00
PROVIDERS: Internal Medicine Gastroenterology
PROC: 0DBK8ZX Excision of Ascending Colon, Via Natural or Artificial Opening Endoscopic, Diagnostic (ICD-10-PCS; principal; 2020-03-23 08:00)
PROC: 0DB68ZX Excision of Stomach, Via Natural or Artificial Opening Endoscopic, Diagnostic (ICD-10-PCS; principal; 2020-03-23 08:00)
PROC: 0DB58ZX Excision of Esophagus, Via Natural or Artificial Opening Endoscopic, Diagnostic (ICD-10-PCS; principal; 2020-03-23 08:00)
PROC: 0DBM8ZX Excision of Descending Colon, Via Natural or Artificial Opening Endoscopic, Diagnostic (ICD-10-PCS; principal; 2020-03-23 08:00)
DX: D46.4 Refractory anemia, unspecified (principal); K21.9 Gastro-esophageal reflux disease without esophagitis; R19.5 Other fecal abnormalities; D12.2 Benign neoplasm of ascending colon; D12.4 Benign neoplasm of descending colon; K44.9 Diaphragmatic hernia without obstruction or gangrene; K29.70 Gastritis, unspecified, without bleeding; I10 Essential (primary) hypertension; E11.9 Type 2 diabetes mellitus without complications; I25.10 Atherosclerotic heart disease of native coronary artery without angina pectoris; I25.2 Old myocardial infarction; I69.354 Hemiplegia and hemiparesis following cerebral infarction affecting left non-dominant side; Z95.0 Presence of cardiac pacemaker; Z79.899 Other long term (current) drug therapy; Z79.82 Long term (current) use of aspirin; Z79.01 Long term (current) use of anticoagulants; Z79.84 Long term (current) use of oral hypoglycemic drugs
CPT/HCPCS: 82947; 88305; 88342; J2704; J7120

== ENCOUNTER 2020-06-17 12:13 | Emergency (ER) | payer MEDICARE ==
[~2020-06-17] VITALS: Ht 172.7 cm; Wt 77.1 kg
[~2020-06-17 12:13] MED LIST changes: +ALLOPURINOL100 M1 PO; +Carvedilol25 MG PO; +HYDHCL25 PO; +HYDR1TAB94 PO; +Imdur-ER60 MG PO; +LATANOPROST2.5 M1; +LIPITOR80 MG PO; +LISINOPRIL2.5 MG PO; +METPRE4DP PO; +PANTOPRAZOLE SO40 M2 PO; +PLAVIX75 MG PO; +PRED20 PO; +SITA50T2 PO
[2020-06-17 12:57] LABS: BASOPHILS ABSOLUTE AUTO 0.02 K/mm3 (0.00-0.23); BASOPHILS PERCENT AUTO 0 % (0-2); EOSINOPHILS ABSOLUTE AUTO 0.16 K/mm3 (0.00-0.68); EOSINOPHILS PERCENT AUTO 3 % (0-6); Hematocrit 33.1 % (33.0-51.0); Hemoglobin 10.7 g/dL (11.5-16.0); IMMATURE GRAN ABSOLUTE AUTO 0.01 K/mm3 (0.00-0.10); IMMATURE GRAN PERCENT AUTO 0 % (0-1); LYMPHOCYTES ABSOLUTE AUTO 1.77 K/mm3 (0.84-5.20); LYMPHOCYTES PERCENT AUTO 35 % (21-46); MONOCYTES ABSOLUTE AUTO 0.25 K/mm3 (0.16-1.47); MONOCYTES PERCENT AUTO 5 % (4-13); Mean Corpuscular HGB 31.8 pg (26.0-34.0); Mean Corpuscular HGB Conc 32.3 g/dL (31.5-36.5); Mean Corpuscular Volume 98 fL (80-100); Mean Platelet Volume 10.2 fL (9.1-12.4); NEUTROPHILS PERCENT AUTO 57 % (41-73); Platelet Count 172 K/mm3 (150-400); RDW Coefficient Variation 14.1 % (11.7-14.2); RDW Standard Deviation 50.8 fL (35.1-46.3); Red Blood Cell Count 3.37 M/mm3 (3.80-5.20); White Blood Cell Count 5.11 K/mm3 (4.00-11.30)
[2020-06-17 13:15] LABS: Alanine Aminotransfer (ALT/SGP 19 U/L (12-78); Albumin, Blood 3.5 g/dL (3.4-5.0); Alk Phos 107 U/L (50-136); Anion Gap 7 mmol/L (6-16); Aspartate Aminotrans (AST/SGOT 13 U/L (12-37); Bilirubin, Total 0.5 mg/dL (0.1-1.0); Blood Urea Nitrogen 27 mg/dL (8-24); Bun/Creatinine Ratio 16.9 (12.0-20.0); CO2, Blood 23 mmol/L (21-32); Calcium, Blood 8.9 mg/dL (8.5-10.1); Chloride, Blood 114 mmol/L (98-108); Globulin, Blood 3.4 g/dL (2.2-4.0); Glomerular Filtration Rate 34 (60-); Glucose, Blood 141 mg/dL (70-99); Potassium, Blood 4.5 mmol/L (3.5-5.5); Sodium, Blood 144 mmol/L (136-145); Total Protein, Blood 6.9 g/dL (6.4-8.2); Troponin I <0.015 ng/mL (0.000-0.040)
[2020-06-17] MEDS ORDERED: Lasix40 MG PO (16:24)
== END 2020-06-17 16:40 | disposition home or self-care (01) ==
LOC: ER 12:13
PROVIDERS: Physician Assistant
DX: R07.89 Other chest pain (principal); R60.0 Localized edema; R06.00 Dyspnea, unspecified; R06.01 Orthopnea; I10 Essential (primary) hypertension; I25.2 Old myocardial infarction; E11.36 Type 2 diabetes mellitus with diabetic cataract; H26.9 Unspecified cataract; Z88.0 Allergy status to penicillin; Z88.4 Allergy status to anesthetic agent; Z79.899 Other long term (current) drug therapy; Z79.02 Long term (current) use of antithrombotics/antiplatelets; Z79.84 Long term (current) use of oral hypoglycemic drugs; Z95.5 Presence of coronary angioplasty implant and graft; Z95.0 Presence of cardiac pacemaker
CPT/HCPCS: 36415; 71045; 80053; 83880; 84484; 85025; 93005; 93010; 99285-25

== ENCOUNTER 2020-10-20 00:40 | Emergency (ER) | payer MEDICARE, SELFPAY ==
[~2020-10-20] VITALS: Ht 172.7 cm; Wt 78.0 kg
[~2020-10-20 00:40] MED LIST changes: +Lasix40 MG PO
[2020-10-20] MEDS ORDERED: ALLO100 PO (00:59)
[2020-10-20 01:56] LABS: BASOPHILS ABSOLUTE AUTO 0.03 K/mm3 (0.00-0.23); BASOPHILS PERCENT AUTO 1 % (0-2); EOSINOPHILS ABSOLUTE AUTO 0.36 K/mm3 (0.00-0.68); EOSINOPHILS PERCENT AUTO 6 % (0-6); Hematocrit 34.2 % (33.0-51.0); Hemoglobin 10.9 g/dL (11.5-16.0); IMMATURE GRAN ABSOLUTE AUTO 0.03 K/mm3 (0.00-0.10); IMMATURE GRAN PERCENT AUTO 1 % (0-1); LYMPHOCYTES ABSOLUTE AUTO 2.19 K/mm3 (0.84-5.20); LYMPHOCYTES PERCENT AUTO 36 % (21-46); MONOCYTES PERCENT AUTO 7 % (4-13); Mean Corpuscular HGB 31.4 pg (26.0-34.0); Mean Corpuscular HGB Conc 31.9 g/dL (31.5-36.5); Mean Corpuscular Volume 99 fL (80-100); Mean Platelet Volume 10.6 fL (9.1-12.4); NEUTROPHILS ABSOLUTE AUTO 3.03 K/mm3 (1.96-9.15); NEUTROPHILS PERCENT AUTO 50 % (41-73); Platelet Count 186 K/mm3 (150-400); RDW Standard Deviation 50.1 fL (35.1-46.3); Red Blood Cell Count 3.47 M/mm3 (3.80-5.20); White Blood Cell Count 6.04 K/mm3 (4.00-11.30)
[2020-10-20 02:11] LABS: Alanine Aminotransfer (ALT/SGP 19 U/L (12-78); Albumin, Blood 3.6 g/dL (3.4-5.0); Alk Phos 125 U/L (50-136); Anion Gap 6 mmol/L (6-16); Aspartate Aminotrans (AST/SGOT 32 U/L (12-37); Bilirubin, Total 0.5 mg/dL (0.1-1.0); Blood Urea Nitrogen 29 mg/dL (8-24); Bun/Creatinine Ratio 19.6 (12.0-20.0); CO2, Blood 21 mmol/L (21-32); Calcium, Blood 8.9 mg/dL (8.5-10.1); Chloride, Blood 112 mmol/L (98-108); Creatinine, Blood 1.48 mg/dL (0.40-1.00); Globulin, Blood 3.6 g/dL (2.2-4.0); Glomerular Filtration Rate 37 (60-); Glucose, Blood 170 mg/dL (70-99); Sodium, Blood 139 mmol/L (136-145); Total Protein, Blood 7.2 g/dL (6.4-8.2); Troponin I <0.015 ng/mL (0.000-0.040)
== END 2020-10-20 04:31 | disposition home or self-care (01) ==
LOC: ER 00:40
PROVIDERS: Emergency Medicine
DX: I10 Essential (primary) hypertension (principal); R07.89 Other chest pain; E11.9 Type 2 diabetes mellitus without complications; I25.2 Old myocardial infarction; Z79.899 Other long term (current) drug therapy; Z79.02 Long term (current) use of antithrombotics/antiplatelets; Z79.84 Long term (current) use of oral hypoglycemic drugs; Z88.0 Allergy status to penicillin; Z88.4 Allergy status to anesthetic agent; Z79.52 Long term (current) use of systemic steroids; Z95.0 Presence of cardiac pacemaker; Z95.5 Presence of coronary angioplasty implant and graft; Z95.1 Presence of aortocoronary bypass graft; Z87.891 Personal history of nicotine dependence
CPT/HCPCS: 36415; 71045; 80053; 83690; 84484; 85025; 93005; 93010; 96374; 99284-25; A9270; J1885

== ENCOUNTER 2021-01-11 20:30 | Emergency (ER) | payer MEDICARE ==
[~2021-01-11] VITALS: Ht 172.7 cm; Wt 78.0 kg
== END 2021-01-11 21:59 | disposition home or self-care (01) ==
LOC: ER 20:30
DX: H10.13 Acute atopic conjunctivitis, bilateral (principal)
CPT/HCPCS: 99283; A9270

== ENCOUNTER 2021-03-06 09:23 | Emergency (ER) | payer MEDICARE ==
[~2021-03-06] VITALS: Ht 172.7 cm; Wt 78.0 kg
[2021-03-06 10:18] LABS: BASOPHILS ABSOLUTE AUTO 0.02 K/mm3 (0.00-0.23); BASOPHILS PERCENT AUTO 0 % (0-2); EOSINOPHILS ABSOLUTE AUTO 0.12 K/mm3 (0.00-0.68); EOSINOPHILS PERCENT AUTO 2 % (0-6); Hematocrit 32.7 % (33.0-51.0); Hemoglobin 10.8 g/dL (11.5-16.0); IMMATURE GRAN ABSOLUTE AUTO 0.01 K/mm3 (0.00-0.10); IMMATURE GRAN PERCENT AUTO 0 % (0-1); LYMPHOCYTES ABSOLUTE AUTO 2.08 K/mm3 (0.84-5.20); LYMPHOCYTES PERCENT AUTO 26 % (21-46); MONOCYTES ABSOLUTE AUTO 0.48 K/mm3 (0.16-1.47); MONOCYTES PERCENT AUTO 6 % (4-13); Mean Corpuscular HGB 32.6 pg (26.0-34.0); Mean Corpuscular Volume 99 fL (80-100); Mean Platelet Volume 10.6 fL (9.1-12.4); NEUTROPHILS ABSOLUTE AUTO 5.24 K/mm3 (1.96-9.15); NEUTROPHILS PERCENT AUTO 66 % (41-73); Platelet Count 174 K/mm3 (150-400); RDW Coefficient Variation 14.8 % (11.7-14.2); RDW Standard Deviation 53.5 fL (35.1-46.3); Red Blood Cell Count 3.31 M/mm3 (3.80-5.20); White Blood Cell Count 7.95 K/mm3 (4.00-11.30)
[2021-03-06 10:43] LABS: Albumin, Blood 3.8 g/dL (3.4-5.0); Albumin/Globulin Ratio 1.1 (0.8-1.8); Bilirubin, Total 0.7 mg/dL (0.1-1.0); Bun/Creatinine Ratio 25.4 (12.0-20.0); Calcium, Blood 9.2 mg/dL (8.5-10.1); Creatinine, Blood 1.85 mg/dL (0.40-1.00); Globulin, Blood 3.6 g/dL (2.2-4.0); Potassium, Blood 4.6 mmol/L (3.5-5.5); Total Protein, Blood 7.4 g/dL (6.4-8.2)
[2021-03-06] MEDS ORDERED: Oxybutynin Chlor5 M1 PO (11:54)
[2021-03-06 12:03] LABS: Source, Urine Clean Catch
[2021-03-06 12:06] LABS: Appearance, Urine Hazy (Clear); Bilirubin, Urine Neg (Neg); Blood, Urine 2+ (Neg); Glucose Qualitative, Urine Neg (Neg); Ketones, Urine Neg (Neg); Leukocyte Esterase, Urine 3+ (Neg); Nitrite, Urine Neg (Neg); Protein, Urine Neg (Neg); Specific Gravity, Urine 1.005 (1.003-1.022); Urobilinogen, Urine NORM (Normal)
[2021-03-06 12:23] LABS: Color, Urine Pale Yellow (P-Yellow)
[2021-03-06 12:24] LABS: Bacteria Many /hpf; Squamous Epithelial Cells Few /hpf (Few); White Blood Cells, Urine 25-50 /hpf (0-5)
[2021-03-06] MEDS ORDERED: CEFP200 PO (12:35)
== END 2021-03-06 13:30 | disposition home or self-care (01) ==
LOC: ER 09:23
PROVIDERS: Physician Assistant
DX: N39.0 Urinary tract infection, site not specified (principal); I10 Essential (primary) hypertension; E11.9 Type 2 diabetes mellitus without complications; I25.2 Old myocardial infarction; Z87.891 Personal history of nicotine dependence; Z79.02 Long term (current) use of antithrombotics/antiplatelets; Z79.899 Other long term (current) drug therapy; Z79.84 Long term (current) use of oral hypoglycemic drugs; Z88.0 Allergy status to penicillin; Z88.4 Allergy status to anesthetic agent
CPT/HCPCS: 36415; 74176; 80053; 81001; 83690; 85025; 87077; 87086; 87186; 93005; 93010; 96365; 99284-25; J0696

== ENCOUNTER 2021-04-20 20:18 | Emergency (ER) | payer MEDICARE ==
[~2021-04-20] VITALS: Ht 172.7 cm; Wt 77.1 kg
[~2021-04-20 20:18] MED LIST changes: +CEFP200 PO; +Oxybutynin Chlor5 M1 PO
== END 2021-04-20 21:30 | disposition home or self-care (01) ==
LOC: ER 20:18
DX: M79.675 Pain in left toe(s) (principal); E11.9 Type 2 diabetes mellitus without complications; I10 Essential (primary) hypertension; Z87.891 Personal history of nicotine dependence
CPT/HCPCS: 73630; 99283-25

== ENCOUNTER 2022-10-07 16:14 | Emergency (ER) | payer MEDICARE ==
[~2022-10-07] VITALS: Ht 170.2 cm; Wt 72.1 kg
[2022-10-07 17:30] LABS: BASOPHILS ABSOLUTE AUTO 0.03 K/mm3 (0.00-0.23); BASOPHILS PERCENT AUTO 1 % (0-2); EOSINOPHILS ABSOLUTE AUTO 0.28 K/mm3 (0.00-0.68); EOSINOPHILS PERCENT AUTO 5 % (0-6); Hematocrit 31.5 % (33.0-51.0); Hemoglobin 10.5 g/dL (11.5-16.0); IMMATURE GRAN ABSOLUTE AUTO 0.01 K/mm3 (0.00-0.10); IMMATURE GRAN PERCENT AUTO 0 % (0-1); LYMPHOCYTES PERCENT AUTO 35 % (21-46); MONOCYTES ABSOLUTE AUTO 0.34 K/mm3 (0.16-1.47); MONOCYTES PERCENT AUTO 7 % (4-13); Mean Corpuscular HGB Conc 33.3 g/dL (31.5-36.5); Mean Corpuscular Volume 99 fL (80-100); Mean Platelet Volume 10.3 fL (9.1-12.4); NEUTROPHILS ABSOLUTE AUTO 2.69 K/mm3 (1.96-9.15); NEUTROPHILS PERCENT AUTO 52 % (41-73); Platelet Count 158 K/mm3 (150-400); RDW Coefficient Variation 14.6 % (11.7-14.2); RDW Standard Deviation 53.1 fL (35.1-46.3); Red Blood Cell Count 3.18 M/mm3 (3.80-5.20); White Blood Cell Count 5.15 K/mm3 (4.00-11.30)
[2022-10-07 17:52] LABS: Albumin, Blood 3.5 g/dL (3.4-5.0); Albumin/Globulin Ratio 1.1 (0.8-1.8); Bilirubin, Total 0.3 mg/dL (0.1-1.0); Bun/Creatinine Ratio 22.1 (12.0-20.0); Calcium, Blood 8.7 mg/dL (8.5-10.1); Creatinine, Blood 1.95 mg/dL (0.40-1.00); Globulin, Blood 3.3 g/dL (2.2-4.0); Potassium, Blood 4.2 mmol/L (3.5-5.5); Total Protein, Blood 6.8 g/dL (6.4-8.2)
[2022-10-07 18:07] LABS: Influenza A, PCR NEGATIVE (NEGATIVE); Influenza B, PCR NEGATIVE (NEGATIVE); Resp Syncytial Virus, PCR POSITIVE (NEGATIVE); SARS-Cov-2 (COVID-19) PCR, MMC NEGATIVE (NEGATIVE)
== END 2022-10-07 20:32 | disposition home or self-care (01) ==
LOC: ER 16:14
PROVIDERS: Physician Assistant
DX: J20.5 Acute bronchitis due to respiratory syncytial virus (principal); I10 Essential (primary) hypertension; I25.2 Old myocardial infarction; E11.9 Type 2 diabetes mellitus without complications; Z20.822 Contact with and (suspected) exposure to COVID-19; Z88.0 Allergy status to penicillin; Z88.8 Allergy status to other drugs, medicaments and biological substances; Z79.899 Other long term (current) drug therapy; Z79.01 Long term (current) use of anticoagulants; Z79.84 Long term (current) use of oral hypoglycemic drugs; Z87.891 Personal history of nicotine dependence
CPT/HCPCS: 0241U; 36415; 71046; 80053; 83880; 84484; 85025; 93005; 93010; 99284-25; A9270

== ENCOUNTER 2022-12-24 10:38 | Day surgery (SDC) | payer MEDICARE ==
[~2022-12-24] VITALS: Ht 167.6 cm; Wt 73.0 kg
[~2022-12-24 10:38] MED LIST changes: +ASPI81CH PO; +LATA.005SO BOTHEYES; +NITR.4SL SL; +TIMO.5OPSO BOTHEYES; +Vitamin D1000 UNI1 PO
--- NOTE | 2022-12-24 14:00 | NUR ---
PT AMBULATES TO RESTROOM AND BACK WITHOUT DIFF. VSS. NADN. PT RADIAL TR BAND HAS BEEN FULLY DEFLATED. NO BLEEDING OR HEMATOMA.
--- NOTE | 2022-12-24 14:26 | NUR ---
PT AND S/O VERBALIZES UNDERSTANDING WRITTEN AND VERBAL INSTRUCTIONS. DENIES QUESTIONS OR CONCERNS.
--- NOTE | 2022-12-24 14:45 | NUR ---
PT DRESSES SELF WITHOUT DIFF. IV DC'D. CATH INTACT. PRESSURE DSG IN PLACE. NO BLEEDING NOTED.PT TR BAND REMOVED. CLOTH DOT IN PLACE WITH SPLINT AND SLING IN PLACE. TOLERATES WELL. PT DC TO HOME VIA WC BY S/O
== END 2022-12-24 14:45 | disposition home or self-care (01) ==
LOC: MHTC 10:38
DX: I25.718 Atherosclerosis of autologous vein coronary artery bypass graft(s) with other forms of angina pectoris (principal); I25.118 Atherosclerotic heart disease of native coronary artery with other forms of angina pectoris; T82.855A Stenosis of coronary artery stent, initial encounter; Y71.8 Miscellaneous cardiovascular devices associated with adverse incidents, not elsewhere classified; I13.10 Hypertensive heart and chronic kidney disease without heart failure, with stage 1 through stage 4 chronic kidney disease, or unspecified chronic kidney disease; N18.32 Chronic kidney disease, stage 3b; I25.10 Atherosclerotic heart disease of native coronary artery without angina pectoris; I27.20 Pulmonary hypertension, unspecified; Z95.0 Presence of cardiac pacemaker; E78.5 Hyperlipidemia, unspecified; E11.22 Type 2 diabetes mellitus with diabetic chronic kidney disease; E11.42 Type 2 diabetes mellitus with diabetic polyneuropathy; Z79.899 Other long term (current) drug therapy; Z79.82 Long term (current) use of aspirin; Z79.84 Long term (current) use of oral hypoglycemic drugs; Z88.0 Allergy status to penicillin; Z88.5 Allergy status to narcotic agent; Z87.891 Personal history of nicotine dependence
CPT/HCPCS: 76937; 93455; 93459; 99152; 99153; A9270; C1769; C1894; J1644; J2250; J3010; J7030; J7050; Q9967

== ENCOUNTER 2023-01-03 19:57 | Emergency (ER) | payer MEDICARE ==
[~2023-01-03] VITALS: Ht 172.7 cm; Wt 72.6 kg
== END 2023-01-03 22:41 | disposition home or self-care (01) ==
LOC: ER 19:57
DX: I82.442 Acute embolism and thrombosis of left tibial vein (principal); E11.9 Type 2 diabetes mellitus without complications; I10 Essential (primary) hypertension; I25.2 Old myocardial infarction; Z88.0 Allergy status to penicillin; Z88.5 Allergy status to narcotic agent; Z79.899 Other long term (current) drug therapy; Z79.82 Long term (current) use of aspirin; Z87.891 Personal history of nicotine dependence
CPT/HCPCS: 93971

== ENCOUNTER 2023-02-25 14:43 | Emergency (ER) | payer MEDICARE ==
[~2023-02-25] VITALS: Ht 170.2 cm; Wt 72.6 kg
[~2023-02-25 14:43] MED LIST changes: +Ultram50 MG PO
[2023-02-25 15:07] VITALS: BP 113/71
[2023-02-27] MEDS ORDERED: TRAM50 PO (22:46)
== END 2023-02-25 17:43 | disposition home or self-care (01) ==
LOC: ER 14:43
DX: M17.12 Unilateral primary osteoarthritis, left knee (principal); Z88.0 Allergy status to penicillin; Z88.8 Allergy status to other drugs, medicaments and biological substances; Z88.7 Allergy status to serum and vaccine; Z79.899 Other long term (current) drug therapy; Z79.82 Long term (current) use of aspirin; E11.9 Type 2 diabetes mellitus without complications; I10 Essential (primary) hypertension; I25.2 Old myocardial infarction; Z87.891 Personal history of nicotine dependence
CPT/HCPCS: 29505; 73562-LT; 99283-25; A9270

== ENCOUNTER 2023-03-02 03:50 | Emergency (ER) | payer OTHER, MEDICARE ==
[~2023-03-02] VITALS: Ht 170.2 cm; Wt 72.6 kg
[~2023-03-02 03:50] MED LIST changes: +TRAM50 PO
[2023-03-02] MEDS ORDERED: OXYC5 PO (08:37)
[2023-03-02 09:15] VITALS: BP 160/70
== END 2023-03-02 09:31 | disposition home or self-care (01) ==
LOC: ER 03:50
DX: M17.12 Unilateral primary osteoarthritis, left knee (principal); I10 Essential (primary) hypertension; E11.9 Type 2 diabetes mellitus without complications; I25.2 Old myocardial infarction; Z95.0 Presence of cardiac pacemaker; Z86.718 Personal history of other venous thrombosis and embolism; Z88.0 Allergy status to penicillin; Z88.4 Allergy status to anesthetic agent; Z79.01 Long term (current) use of anticoagulants; Z79.02 Long term (current) use of antithrombotics/antiplatelets; Z79.84 Long term (current) use of oral hypoglycemic drugs; Z79.82 Long term (current) use of aspirin; Z79.899 Other long term (current) drug therapy; Z87.891 Personal history of nicotine dependence; W17.89XA Other fall from one level to another, initial encounter
CPT/HCPCS: 73502; 73700; A9270

== ENCOUNTER 2023-03-08 01:37 | Emergency (ER) | payer MEDICARE ==
[~2023-03-08] VITALS: Ht 170.2 cm; Wt 72.6 kg
[~2023-03-08 01:37] MED LIST changes: +OXYC5 PO
[2023-03-08 17:20] VITALS: BP 188/68
== END 2023-03-08 17:38 ==
LOC: ER 01:37
DX: M25.562 Pain in left knee (principal); M25.561 Pain in right knee; G89.29 Other chronic pain; R26.2 Difficulty in walking, not elsewhere classified; R68.89 Other general symptoms and signs
CPT/HCPCS: 96372; 97162; 97530; 99284-25; J1885

== ENCOUNTER 2023-10-04 12:00 | Inpatient (IN) | payer MEDICARE ==
[~2023-10-04] VITALS: Ht 170.2 cm; Wt 68.9 kg
[~2023-10-04 12:00] MED LIST changes: +ISOSORBIDE MONO PO
[2023-10-04 12:31] LABS: BASOPHILS ABSOLUTE AUTO 0.02 K/mm3 (0.00-0.23); BASOPHILS PERCENT AUTO 0 % (0-2); EOSINOPHILS ABSOLUTE AUTO 0.12 K/mm3 (0.00-0.68); EOSINOPHILS PERCENT AUTO 2 % (0-6); Hematocrit 34.3 % (33.0-51.0); Hemoglobin 11.3 g/dL (11.5-16.0); IMMATURE GRAN ABSOLUTE AUTO 0.02 K/mm3 (0.00-0.10); IMMATURE GRAN PERCENT AUTO 0 % (0-1); LYMPHOCYTES ABSOLUTE AUTO 1.89 K/mm3 (0.84-5.20); LYMPHOCYTES PERCENT AUTO 27 % (21-46); MONOCYTES ABSOLUTE AUTO 0.34 K/mm3 (0.16-1.47); MONOCYTES PERCENT AUTO 5 % (4-13); Mean Corpuscular HGB 33.2 pg (26.0-34.0); Mean Corpuscular HGB Conc 32.9 g/dL (31.5-36.5); Mean Corpuscular Volume 101 fL (80-100); Mean Platelet Volume 11.3 fL (9.1-12.4); NEUTROPHILS ABSOLUTE AUTO 4.68 K/mm3 (1.96-9.15); NEUTROPHILS PERCENT AUTO 66 % (41-73); Platelet Count 196 K/mm3 (150-400); RDW Coefficient Variation 14.1 % (11.7-14.2); RDW Standard Deviation 52.1 fL (35.1-46.3); White Blood Cell Count 7.07 K/mm3 (4.00-11.30)
[2023-10-04 13:32] LABS: Albumin, Blood 3.6 g/dL (3.4-5.0); Albumin/Globulin Ratio 1.1 (0.8-1.8); Bilirubin, Total 0.5 mg/dL (0.1-1.0); Bun/Creatinine Ratio 24.8 (12.0-20.0); Creatinine, Blood 1.49 mg/dL (0.40-1.00); Globulin, Blood 3.3 g/dL (2.2-4.0); Potassium, Blood 5.1 mmol/L (3.5-5.5); Total Protein, Blood 6.9 g/dL (6.4-8.2)
[2023-10-04 14:52] LABS: Anti-Xa UFH, PHA Monitoring <0.10 IU/mL
[2023-10-04 14:58] LABS: International Normalized Ratio 1.04; Prothrombin Time Results 10.9 Sec (9.7-11.5)
[2023-10-04 18:22] VITALS: BP 124/63
--- NOTE | 2023-10-04 19:27 | NUR ---
SHIFT SUMMARY PT ARRIVED TO UNIT FROM ED AT APPROXIMATELY 1805. SHE IS A&OX4 AND COOPERATIVE WITH CARE AND ABLE TO MAKE NEEDS KNOWN. JIM. PT ON RA AND MAINTAININ 02 SATURATION ABOVE 92%, SHE DENIES SOB. PT HAS PACER AND SAID SHE IS PACED IN THE 60'S, HER RATE WHEN SHE ARRIVED WAS 77. PT DENIES CHEST PAIN/PRESSURE AT THIS TIME. SHE IS STEADY ON HER FEET AND IS CONTINENT. PT EDUCATED TO USE CALL LIGHT FOR 1 PERSON ASSISTS WHEN AMBULATING DUE TO SAFETY. PT'S LEFT LOWER LEG IS SLIGHTLY SWOLLEN COMPARED TO R LOWER LEG, PT SAID THAT IS NORMAL FOR HER. PT RESTING IN BED AND CALL LIGHT WITHIN REACH.
[2023-10-04 21:36] VITALS: BP 144/79
[2023-10-04 23:50] VITALS: BP 132/75
[2023-10-05 04:00] VITALS: BP 129/76
[2023-10-05 04:04] LABS: BASOPHILS ABSOLUTE AUTO 0.03 K/mm3 (0.00-0.23); BASOPHILS PERCENT AUTO 0 % (0-2); EOSINOPHILS ABSOLUTE AUTO 0.14 K/mm3 (0.00-0.68); EOSINOPHILS PERCENT AUTO 2 % (0-6); Hematocrit 32.6 % (33.0-51.0); Hemoglobin 10.6 g/dL (11.5-16.0); IMMATURE GRAN ABSOLUTE AUTO 0.02 K/mm3 (0.00-0.10); IMMATURE GRAN PERCENT AUTO 0 % (0-1); LYMPHOCYTES ABSOLUTE AUTO 3.12 K/mm3 (0.84-5.20); LYMPHOCYTES PERCENT AUTO 36 % (21-46); MONOCYTES ABSOLUTE AUTO 0.38 K/mm3 (0.16-1.47); MONOCYTES PERCENT AUTO 4 % (4-13); Mean Corpuscular HGB 32.5 pg (26.0-34.0); Mean Corpuscular HGB Conc 32.5 g/dL (31.5-36.5); Mean Corpuscular Volume 100 fL (80-100); Mean Platelet Volume 10.3 fL (9.1-12.4); NEUTROPHILS ABSOLUTE AUTO 5.04 K/mm3 (1.96-9.15); NEUTROPHILS PERCENT AUTO 58 % (41-73); Platelet Count 151 K/mm3 (150-400); RDW Coefficient Variation 14.1 % (11.7-14.2); RDW Standard Deviation 51.7 fL (35.1-46.3); Red Blood Cell Count 3.26 M/mm3 (3.80-5.20); White Blood Cell Count 8.73 K/mm3 (4.00-11.30)
[2023-10-05 04:42] LABS: Albumin, Blood 3.3 g/dL (3.4-5.0); Albumin/Globulin Ratio 1.1 (0.8-1.8); Bilirubin, Total 0.6 mg/dL (0.1-1.0); Bun/Creatinine Ratio 26.9 (12.0-20.0); Calcium, Blood 8.7 mg/dL (8.5-10.1); Creatinine, Blood 1.34 mg/dL (0.40-1.00); Globulin, Blood 3.1 g/dL (2.2-4.0); Total Protein, Blood 6.4 g/dL (6.4-8.2)
--- NOTE | 2023-10-05 05:32 | NUR ---
SHIFT SUMMARY A/Ox4 AND COOPERATIVE WITH CARE. ANSWERS QUESTIONS APPROPRIATELY AND ABLE TO MAKE HES NEEDS KNOWN. CARDIAC, REMAINS IN SR/PACED RHYTHM 60-70'S WITH NO REPORTS OF CP OR PRESSURE T/O THE NIGHT. RESPIRATORY, MAINTAINS SPO2 >93% ON RA WITH NO REPORTS OF SOB OR DYSPNEA. GI/, ABLE TO AMBULATE TO BATHROOM TO VOID. REPORTS OCCASIONAL INCONTINENCE, BUT NO ACCIDENTS THIS SHIFT. NO BM THIS SHIFT. HEPARIN gtt IS BEING MANAGED BY PHARMACY AND HAS BEEN INFUSING T/O THE NIGHT ORDERED VIA EMAR. PT HAS BEEN NPO SINCE MDN FOR LEXISCAN THIS AM. TROPONINS CONTINUE TO INCREASE WITH FURTHER REDRAWS SCHEDULED. ASSESSED PT FOR RISKS OF ANY IGNITION SOURCES WELL BEHAVIORS FOR INCREASED RISKS OF FIRE DANGER. PT EDUCATED ON COMMON SOURCES OF IGNITION WELL NEED TO KEEP A SAFE ENVIRONMENT. PT VOICED UNDERSTANDING. NO NEW ORDERS AT THIS TIME, WILL REPORT TO ONCOMING RN. NAKUL CHOUDHURY OF THIS NOTE
[2023-10-05 07:17] VITALS: BP 134/62
[2023-10-05 11:11] VITALS: BP 137/65
[2023-10-05 16:29] VITALS: BP 132/63
--- NOTE | 2023-10-05 17:25 | NUR ---
SHIFT SUMMARY PT ALERT AND ORIENTED X 4, COOPERATIVE WITH CARE, AND ABLE TO MAKE NEEDS KNOWN. JIM. ON RA AND MAINTAINED 02 SATURATION ABOVE 92% AND DENIED SOB ALL SHIFT. PT HAS A PACER, HR HAS BEEN 60'S-70'S, SEE VITALS. SHE HAS DENIED CHEST PAIN/PRESSURE/DIZZINESS ALL SHIFT. PT IS CONTINENT AND CALLS APPROPRIATELY TO USE RESTROOM. SHE IS A LITTLE UNSTEADY ON HER FEET WHILE STANDING BUT SHE RECOVERS QUICKLY, SBA UTILIZED ALL DAY WHEN PT WAS UP. PT ON HEPARIN DRIP PER EMAR. PT HAD FIRST PART OF STRESS TEST PERFORMED TODAY AND TOLERATED WELL. SHE IS DUE TO BE NPO AT MIDNIGHT FOR SECOND HALF OF STRESS TEST TOMORROW 10/06/23. SHE HAD A COUPLE VISITORS TODAY AND HAS BEEN IN GOOD SPIRITS. SHE JUST FINISHED DINNER, SHE ATE APPROXIMATELY 10% OF HER MEAL AND SAID SHE WAS FULL. SHE IS RESTING IN BED WITH CALL LIGHT WITHIN REACH.
[2023-10-05 20:10] VITALS: BP 144/73
[2023-10-05 23:20] VITALS: BP 155/72
--- NOTE | 2023-10-05 23:44 | NUR ---
CHEST PAIN MANAGEMENT WHILE ASSISTING THE PT TO THE RESTROOM, SHE C/O GI UPSET. ON HER WAY BACK TO BED THE PT STARTED TO C/O SUBSTERNAL PRESSURE AND PAIN. CHARGE NOTIFIED AND VITALS OBTAINED. VSS, PT PLACED ON 2L VIA NC FOR COMFORT. CALL PLACED TO RESIDENT DRAKE, OBTAINED ORDER FOR 2 MG MORPHINE. GIVEN AT 2318, AT THIS TIME PT REPORTS NO IMPROVEMENT AND THAT THE PAIN IS RADIATING UP HER LEFT NECK. EKG PERFORMED D/T NO IMPROVEMENT. RESIDENT DRAKE NOTIFIED, INFORMED SHE WOULD CONSULT WITH THE HOSPITALIST. AWAITING FOR ORDERS AT THIS TIME.
[2023-10-06] VITALS (7 sets, daily range): BP systolic 124–157; BP diastolic 60–68
[2023-10-06 02:40] LABS: BASOPHILS ABSOLUTE AUTO 0.02 K/mm3 (0.00-0.23); BASOPHILS PERCENT AUTO 0 % (0-2); EOSINOPHILS ABSOLUTE AUTO 0.08 K/mm3 (0.00-0.68); EOSINOPHILS PERCENT AUTO 1 % (0-6); Hematocrit 29.8 % (33.0-51.0); IMMATURE GRAN ABSOLUTE AUTO 0.01 K/mm3 (0.00-0.10); IMMATURE GRAN PERCENT AUTO 0 % (0-1); LYMPHOCYTES ABSOLUTE AUTO 2.09 K/mm3 (0.84-5.20); LYMPHOCYTES PERCENT AUTO 31 % (21-46); MONOCYTES ABSOLUTE AUTO 0.37 K/mm3 (0.16-1.47); MONOCYTES PERCENT AUTO 5 % (4-13); Mean Corpuscular HGB 33.1 pg (26.0-34.0); Mean Corpuscular HGB Conc 33.6 g/dL (31.5-36.5); Mean Corpuscular Volume 99 fL (80-100); Mean Platelet Volume 10.5 fL (9.1-12.4); NEUTROPHILS ABSOLUTE AUTO 4.27 K/mm3 (1.96-9.15); NEUTROPHILS PERCENT AUTO 62 % (41-73); Platelet Count 130 K/mm3 (150-400); RDW Coefficient Variation 14.4 % (11.7-14.2); RDW Standard Deviation 52.5 fL (35.1-46.3); Red Blood Cell Count 3.02 M/mm3 (3.80-5.20); White Blood Cell Count 6.84 K/mm3 (4.00-11.30)
[2023-10-06 03:10] LABS: Calcium, Blood 8.2 mg/dL (8.5-10.1); Creatinine, Blood 1.35 mg/dL (0.40-1.00); Potassium, Blood 4.2 mmol/L (3.5-5.5)
--- NOTE | 2023-10-06 04:59 | NUR ---
SHIFT SUMMARY VSS, TELE READS AV PACED @60. PLEASE SEE PREVIOUS NOTE FOR AN UPDATE ON THE PATIENTS CHEST PAIN EPISODE. PAIN APPEARED TO RESOLVE POST MORPHINE ADMINISTRATION AND PT SLEPT T/O THE NIGHT. PT AMBULATED TO THE BATHROOM W/ SBA AND FWW, VOIDING W/O DIFFICULTY. NO BM NOTED. PT HAS BEEN NPO SINCE 0000 IN ANTICIPATION FOR PT 2 OF STRESS TEST TODAY. OTHERWISE, NO ACUTE EVENTS NOTED. THE PAITNET IS CURRENTLY SLEEPING, IN NO DISTRESS, CALL LIGHT IN REACH
--- NOTE | 2023-10-06 18:06 | NUR ---
ASSUMED CARE OF PT AT 0700 THIS AM. NO ACUTE CHANGES T/O THE DAY, 2ND HALF OF STRESS TEST COMPLETED. DR GEORGES READ RESULTS AND PT WILL BE MEDICALLY MANAGED, NEW ORDERS PLACED. HEPARIN GTT DISCONTINUED. PT HAS DENIED CHEST PAIN OR PRESSURE T/O THE SHIFT, NO COMPLAINTS AND STATES SHE FEELS BACK TO HER BASELINE HEALTH. PLANS TO DC TOMORROW. PT IS ABLE TO MAKE HER NEEDS KNOWN, USES CALL LIGHT APPROPRIATELY. THIS RN WILL CONTINUE TO MONITOR/TREAT AND GIVE REPORT TO NOC SHIFT RN.
[2023-10-07] VITALS: BP 157/66
[2023-10-07 04:51] LABS: Bun/Creatinine Ratio 23.6 (12.0-20.0); Calcium, Blood 8.4 mg/dL (8.5-10.1); Creatinine, Blood 1.48 mg/dL (0.40-1.00); Potassium, Blood 4.1 mmol/L (3.5-5.5)
[2023-10-07 05:00] VITALS: BP 160/64
[2023-10-07 05:13] VITALS: BP 160/64
[2023-10-07 08:32] VITALS: BP 154/57
--- NOTE | 2023-10-07 15:21 | NUR ---
DISCHARGE: PT DC TO HOME AT THIS TIME WITH SPOUSE. PT VERBALIZED UNDERSTANDING OF MEDS, FOLLOW UP, AND INSTRUCTIONS. MEDS FAXED TO [facility] PER PT REQUEST. IV DC'D WNL. PT LEFT VIA WHEELCHAIR TO CAR WITH BELONGINGS.
== END 2023-10-07 13:22 | disposition home or self-care (01) | DRG 281 ==
LOC: ER 12:00 → PCU 17:42
PROVIDERS: Emergency Medicine; ADMIT Hospitalist
DX: I21.4 Non-ST elevation (NSTEMI) myocardial infarction (principal); I13.0 Hypertensive heart and chronic kidney disease with heart failure and stage 1 through stage 4 chronic kidney disease, or unspecified chronic kidney disease; I50.32 Chronic diastolic (congestive) heart failure; I45.2 Bifascicular block; I25.110 Atherosclerotic heart disease of native coronary artery with unstable angina pectoris; N18.32 Chronic kidney disease, stage 3b; E11.22 Type 2 diabetes mellitus with diabetic chronic kidney disease; E11.42 Type 2 diabetes mellitus with diabetic polyneuropathy; E78.5 Hyperlipidemia, unspecified; M10.9 Gout, unspecified; K21.9 Gastro-esophageal reflux disease without esophagitis; I25.710 Atherosclerosis of autologous vein coronary artery bypass graft(s) with unstable angina pectoris; I65.29 Occlusion and stenosis of unspecified carotid artery; I44.0 Atrioventricular block, first degree; Z86.718 Personal history of other venous thrombosis and embolism; Z95.1 Presence of aortocoronary bypass graft; Z95.5 Presence of coronary angioplasty implant and graft; Z95.0 Presence of cardiac pacemaker; Z88.0 Allergy status to penicillin; Z88.8 Allergy status to other drugs, medicaments and biological substances; Z79.02 Long term (current) use of antithrombotics/antiplatelets; Z79.84 Long term (current) use of oral hypoglycemic drugs; Z79.82 Long term (current) use of aspirin; Z87.891 Personal history of nicotine dependence
CPT/HCPCS: 36415; 36416; 71045; 78452; 80048; 80053; 82947; 83880; 84484; 85025; 85520; 85610; 85730; 93005; 93010; 93017; 96365; 96366; 99285-25; A9270; A9500; J0280; J1644; J2270; J2785; J7030

== ENCOUNTER 2024-08-05 09:41 | Day surgery (SDC) | payer OTHER ==
[~2024-08-05] VITALS: Ht 167.6 cm; Wt 76.2 kg
[2024-08-05 11:02] VITALS: BP 187/76
[2024-08-05] MEDS ORDERED: Vancomycin HCl 1000 MG ADDvantage ONE (11:43)
[2024-08-05] MEDS ORDERED: NS 500 ML IV ONE (11:43)
[2024-08-05] MEDS ORDERED: Clindamycin 600mg in D5W 50 ML IV ONE (12:20)
[2024-08-05] MEDS ORDERED: NS 100 ML IV ONE (12:20)
[2024-08-05] MEDS ORDERED: FentaNYL Citrate 50 MCG/ML 2 ML Injection ONE (12:37)
[2024-08-05 14:05] VITALS: BP 164/71
[2024-08-05 14:15] VITALS: BP 170/64
== END 2024-08-05 16:00 | disposition home or self-care (01) ==
LOC: MHTC 09:41
DX: Z45.018 Encounter for adjustment and management of other part of cardiac pacemaker (principal); R00.1 Bradycardia, unspecified; I25.10 Atherosclerotic heart disease of native coronary artery without angina pectoris; I25.2 Old myocardial infarction; I27.20 Pulmonary hypertension, unspecified; I65.21 Occlusion and stenosis of right carotid artery; I12.9 Hypertensive chronic kidney disease with stage 1 through stage 4 chronic kidney disease, or unspecified chronic kidney disease; E11.22 Type 2 diabetes mellitus with diabetic chronic kidney disease; N18.32 Chronic kidney disease, stage 3b; E78.5 Hyperlipidemia, unspecified; Z79.82 Long term (current) use of aspirin; Z79.02 Long term (current) use of antithrombotics/antiplatelets; Z79.84 Long term (current) use of oral hypoglycemic drugs; Z79.899 Other long term (current) drug therapy; Z88.0 Allergy status to penicillin; Z88.4 Allergy status to anesthetic agent; Z87.891 Personal history of nicotine dependence; Z90.710 Acquired absence of both cervix and uterus
CPT/HCPCS: 33222; 33228; 99152; 99153; C1785; J3010; J3370; J7040

== ENCOUNTER → 2024-10-04 | Outpatient (CLI) | payer OTHER ==
[2024-10-04 13:54] LABS: BASOPHILS ABSOLUTE AUTO 0.02 K/mm3 (0.00-0.23); BASOPHILS PERCENT AUTO 0 % (0-2); EOSINOPHILS ABSOLUTE AUTO 0.09 K/mm3 (0.00-0.68); EOSINOPHILS PERCENT AUTO 1 % (0-6); Hematocrit 34.1 % (33.0-51.0); Hemoglobin 11.1 g/dL (11.5-16.0); IMMATURE GRAN ABSOLUTE AUTO 0.03 K/mm3 (0.00-0.10); IMMATURE GRAN PERCENT AUTO 0 % (0-1); LYMPHOCYTES PERCENT AUTO 24 % (21-46); MONOCYTES ABSOLUTE AUTO 0.28 K/mm3 (0.16-1.47); MONOCYTES PERCENT AUTO 4 % (4-13); Mean Corpuscular HGB 32.2 pg (26.0-34.0); Mean Corpuscular HGB Conc 32.6 g/dL (31.5-36.5); Mean Corpuscular Volume 99 fL (80-100); NEUTROPHILS ABSOLUTE AUTO 5.08 K/mm3 (1.96-9.15); NEUTROPHILS PERCENT AUTO 71 % (41-73); Platelet Count 150 K/mm3 (150-400); RDW Coefficient Variation 14.2 % (11.7-14.2); RDW Standard Deviation 51.6 fL (35.1-46.3); Red Blood Cell Count 3.45 M/mm3 (3.80-5.20)
[2024-10-04 14:07] LABS: Albumin, Blood 3.7 g/dL (3.4-5.0); Albumin/Globulin Ratio 1.1 (0.8-1.8); Bun/Creatinine Ratio 13.1 (12.0-20.0); Calcium, Blood 9.2 mg/dL (8.5-10.1); Creatinine, Blood 1.6 mg/dL (0.40-1.00); Globulin, Blood 3.3 g/dL (2.2-4.0); Potassium, Blood 4.1 mmol/L (3.5-5.5)
== END ==
LOC: LAB SHORT 13:51 → LAB 13:51
PROVIDERS: Physician Assistant Surgical
DX: R10.9 Unspecified abdominal pain (principal); N39.0 Urinary tract infection, site not specified
CPT/HCPCS: 80053; 85025; 87077; 87086; 87186

== ENCOUNTER 2024-12-15 19:21 | Emergency (ER) | payer OTHER ==
[~2024-12-15] VITALS: Ht 172.7 cm; Wt 72.6 kg
[2024-12-15] MEDS ORDERED: Morphine Sulfate 4 MG/1 ML Injection IV ONE (19:40)
[2024-12-15] MEDS ORDERED: Metoclopramide HCl 5MG / ML 2ML Vial IV ONE (19:40)
[2024-12-15 20:13] LABS: CORONAVIRUS COVID-19 AG Negative (NEGATIVE); INFLUENZA A AG Negative (NEGATIVE); INFLUENZA B AG Negative (NEGATIVE)
[2024-12-15 20:19] LABS: BASOPHILS ABSOLUTE AUTO 0.01 K/mm3 (0.00-0.23); BASOPHILS PERCENT AUTO 0 % (0-2); EOSINOPHILS ABSOLUTE AUTO 0.15 K/mm3 (0.00-0.68); EOSINOPHILS PERCENT AUTO 3 % (0-6); Hematocrit 33.9 % (33.0-51.0); Hemoglobin 11.1 g/dL (11.5-16.0); IMMATURE GRAN ABSOLUTE AUTO 0.01 K/mm3 (0.00-0.10); IMMATURE GRAN PERCENT AUTO 0 % (0-1); LYMPHOCYTES ABSOLUTE AUTO 1.71 K/mm3 (0.84-5.20); LYMPHOCYTES PERCENT AUTO 30 % (21-46); MONOCYTES PERCENT AUTO 4 % (4-13); Mean Corpuscular HGB 32.4 pg (26.0-34.0); Mean Corpuscular HGB Conc 32.7 g/dL (31.5-36.5); Mean Corpuscular Volume 99 fL (80-100); Mean Platelet Volume 10.4 fL (9.1-12.4); NEUTROPHILS ABSOLUTE AUTO 3.55 K/mm3 (1.96-9.15); NEUTROPHILS PERCENT AUTO 63 % (41-73); Platelet Count 133 K/mm3 (150-400); RDW Coefficient Variation 14.5 % (11.7-14.2); RDW Standard Deviation 52.3 fL (35.1-46.3); Red Blood Cell Count 3.43 M/mm3 (3.80-5.20); White Blood Cell Count 5.63 K/mm3 (4.00-11.30)
[2024-12-15 20:34] LABS: Albumin, Blood 3.5 g/dL (3.4-5.0); Albumin/Globulin Ratio 1.1 (0.8-1.8); Bilirubin, Total 0.8 mg/dL (0.1-1.0); Bun/Creatinine Ratio 21.1 (12.0-20.0); Calcium, Blood 8.6 mg/dL (8.5-10.1); Creatinine, Blood 1.28 mg/dL (0.40-1.00); Globulin, Blood 3.1 g/dL (2.2-4.0); Potassium, Blood 4.3 mmol/L (3.5-5.5); Total Protein, Blood 6.6 g/dL (6.4-8.2)
[2024-12-15 21:18] LABS: Source, Urine Voided
[2024-12-15 21:21] LABS: Appearance, Urine Clear (Clear); Bilirubin, Urine Neg (Neg); Blood, Urine Neg (Neg); Color, Urine Pale Yellow (P-Yellow); Glucose Qualitative, Urine Neg (Neg); Ketones, Urine Neg (Neg); Leukocyte Esterase, Urine Neg (Neg); Nitrite, Urine Neg (Neg); Protein, Urine 1+ (Neg); Specific Gravity, Urine 1.015 (1.003-1.022); Urobilinogen, Urine NORM (Normal)
[2024-12-15 23:00] VITALS: BP 113/96
[2024-12-15] MEDS ORDERED: ONDA4ODT MM (23:12)
[2024-12-15] MEDS ORDERED: LOPE2C PO (23:12)
== END 2024-12-15 23:35 | disposition home or self-care (01) ==
LOC: ER 19:21
PROVIDERS: Emergency Medicine
DX: R11.2 Nausea with vomiting, unspecified (principal); R19.7 Diarrhea, unspecified; I10 Essential (primary) hypertension; E11.9 Type 2 diabetes mellitus without complications; I25.2 Old myocardial infarction; Z87.891 Personal history of nicotine dependence; Z88.0 Allergy status to penicillin; Z88.1 Allergy status to other antibiotic agents; Z88.8 Allergy status to other drugs, medicaments and biological substances; Z79.82 Long term (current) use of aspirin; Z79.899 Other long term (current) drug therapy; Z79.01 Long term (current) use of anticoagulants
CPT/HCPCS: 74177; 80053; 83690; 85025; 87428-QW; 93005; 93010; 96374; 96375; 99284-25; J2270; J2765; Q9967

== ENCOUNTER → 2025-05-07 | Outpatient (CLI) | payer OTHER ==
[~2025-05-07] MED LIST changes: +LOPE2C PO
[2025-05-08 10:22] LABS: Stool Occult Bld Immuno 1 Negative (NEGATIVE)
== END ==
LOC: LAB 13:44 → LAB SHORT 13:44
PROVIDERS: Family Medicine
DX: Z12.11 Encounter for screening for malignant neoplasm of colon (principal)
CPT/HCPCS: G0328